=== PATIENT | female | born 1935 | race Caucasian/White ===

== ENCOUNTER 2018-09-08 11:39 | Outpatient (CLI) | payer MEDICARE, OTHER ==
--- NOTE | 2018-09-08 13:29 | RAD ---
CHEST PA AND LATERAL: 09/08/18 HISTORY: 83-year-old female with history of J40, left sided chest pain. and shortness of breath for two weeks. There is prominent S-shaped scoliosis of the thoracolumbar spine, convexed to the right side at the t horacic level and convexed to the left side at the lumbothoracic level. There is a large left effusio n with some parenchymal changes in the left lower lobe in part related to some subsegmental or partia l atelectasis. Heart size is difficult to assess but appears to be at least upper range of normal. M ild increased linear and interstitial markings in the right chest without confluent pneumonia, overt edema or pleural effusion. Very minimal right sided pleural thickening. No old studies. IMPRESSION: Evidence for moderate left pleural effusion with some associated left lower lobe parenchymal change. Heart size appears to be within normal limits or borderline in enlarged. No acute process in the righ t chest. Atherosclerosis of the aorta with ectasia. S-shaped thoracolumbar spine scoliosis. Code T POS: [facility]
== END 2018-09-08 11:40 | disposition home or self-care (01) ==
LOC: SCSRAD 11:39
PROVIDERS: ATTEND Nurse Practitioner Family
DX: J40 Bronchitis, not specified as acute or chronic (principal); J90 Pleural effusion, not elsewhere classified; I70.0 Atherosclerosis of aorta; I77.819 Aortic ectasia, unspecified site; M41.9 Scoliosis, unspecified
CPT/HCPCS: 71046

== ENCOUNTER 2018-09-11 11:47 | Inpatient (IN) | payer MEDICARE, OTHER ==
[2018-09-11 12:17] LABS: #Lymphocytes 0.5 thou/uL (1.20-3.40); #Monocytes 0.3 thou/uL (0.11-0.59); #Neutrophils 7.4 thou/uL (1.40-6.50); %Eosinophils 0.3 % (0.0-10.0); %Lymphocytes 6.5 % (21.0-51.0); %Monocytes 3.4 % (0.0-10.0); %Neutrophils 89.8 % (42.0-75.0); Hemoglobin 14.1 g/dL (12.0-16.0); Mean Corpuscular HGB CONC 33.6 g/dL (32.0-36.0); Mean Corpuscular Hemoglobin 31.4 pg (27.0-31.0); Mean Corpuscular Volume 93.3 fL (78.0-98.0); Mean Platelet Volume 7.4 fL (7.4-10.4); Platelet Count 217 thou/uL (130-400); RBC Distribution Width 12.3 % (11.5-14.5); Red Blood Cell (RBC) Count 4.51 mill/uL (4.20-5.40); White Blood Cell (WBC) Count 8.2 thou/uL (4.8-10.8)
[2018-09-11] MEDS ORDERED: Ondansetron PF 4 MG/2 ML Vial ONE (12:34)
[2018-09-11] MEDS ORDERED: Morphine 4 MG/ML VIAL ONE ×2 (12:36→15:05)
[2018-09-11 12:42] LABS: ALT (SGPT) 8 U/L (8-55); AST (SGOT) 8 U/L (5-34); Albumin 3.3 g/dL (3.4-4.8); Alkaline Phosphatase 52 U/L (40-150); Anion Gap 11 mmol/L (10-20); BUN (Urea Nitrogen) 30 mg/dL (9.8-20.1); Bilirubin, Total 0.5 mg/dL (0.2-1.2); Calc. Creatinine Clearance 0 mL/min (70-130); Calcium 9.4 mg/dL (7.8-10.44); Carbon Dioxide 27 mmol/L (23-31); Chloride 105 mmol/L (98-107); Estimated GFR-MDRD 44; Globulin 2.9 g/dL (2.4-3.5); Glucose 255 mg/dL (83-110); Lipase 18 U/L (8-78); Potassium 4.3 mmol/L (3.5-5.1); Protein, Total 6.2 g/dL (6.0-8.3); Sodium 139 mmol/L (136-145)
[2018-09-11] MEDS ORDERED: Sodium Chloride 0.9% 0 ML ONE (13:18)
[2018-09-11] MEDS ORDERED: Piperacillin/Tazobactam 4.5 GM VIAL ONE (13:18)
--- NOTE | 2018-09-11 13:19 | RAD ---
CHEST ONE VIEW: HISTORY: Dyspnea. COMPARISON: Chest radiograph from 09/08/2018. FINDINGS: The large left layering pleural effusion has slightly increased in size. A left basilar air space op acity is present. Scoliosis is similar. Mild pulmonary vascular congestion. IMPRESSION: 1. Increased size of layering left pleural effusion, which is now large, with apical capping. Thora centesis may be beneficial in this patient if clinically warranted. 2. Mild pulmonary vascular congestion and early edema. POS: [facility]
--- NOTE | 2018-09-11 13:27 | CT ---
CT ABDOMEN AND PELVIS WITHOUT CONTRAST: Date: 09-11-18 Provided Clinical History: Abdominal pain. FINDINGS: Comparison 04-02-16, [facility]. There is a large volume left pleural effusion demonstrating Hounsfield units greater seen than usuall y seen for simple fluid. This could reflect a hemorrhagic component to fluid or a proteinaceous compo nent to the fluid. There is free intraperitoneal air present. There is focal inflammatory fat stranding seen about the s igmoid colon with an adjacent 4.0 cm gas and fluid collection within the anterior left midabdomen. There is no evidence for bowel obstruction. Vascular calcifications are seen. Changes of prior right nephrectomy are seen. Stable left renal hypodensities. Spleen, adrenal glands, pancreas, and liver ap pear unremarkable. The osseous structures demonstrate no concerning lytic or blastic lesions. IMPRESSION: 1. Findings compatible with perforated sigmoid diverticulitis with free intraperitoneal air and parac olonic gas and fluid collection. 2. Large volume left pleural effusion demonstrating Hounsfield units atypical for simple fluid and po ssibly reflecting a hemorrhagic or proteinaceous component. Findings discussed with Dr. Hanson in the Emergency Department 1:09 p.m. 09-11-18. POS: [facility]
[2018-09-11 13:30] LABS: PTT 25.5 SEC (22.9-36.1); Prothrombin Time 13.7 SEC (12.0-14.7)
[2018-09-11] MEDS ORDERED: metroNIDAZOLE 500 MG in Premix Bag 1 BAG IVPB SCH ×2 (13:30→22:00)
[2018-09-11 16:22] LABS: BF Color Yellow; Body Fluid Source THORACENTESIS FLD; Clarity Cloudy/Turbid (Clear); RBC Count-Automated 15000 /cumm; Tube # EDTA; WBC/NonHematic-Auto 5570 /cumm
[2018-09-11 16:31] LABS: Fluid, Triglycerides 18 mg/dL (Not Available); Pleural Fluid, Amylase Less than 30 U/L (Not Available); Pleural Fluid, Glucose 138 mg/dL; Pleural Fluid, LDH 2085 U/L (Not Available); Pleural Fluid, Protein 3.8 g/dL
[2018-09-11] MEDS ORDERED: Morphine 4 MG/ML VIAL SLOW IVP PRN (16:43)
[2018-09-11] MEDS ORDERED: D5 1/2 NS w/20 mEq KCL 1,000 ML IV SCH (16:45)
[2018-09-11] MEDS ORDERED: Ondansetron ODT 4 MG TAB SL PRN (16:45)
[2018-09-11] MEDS ORDERED: Ondansetron PF 4 MG/2 ML Vial IVP PRN (16:45)
[2018-09-11 17:16] LABS: BF Segmented Neutrophils 5 %; Cell Count Non Hematic 50 %; Lymphocytes 45 %
[2018-09-11] MEDS ORDERED: Dextrose 5% in Water 1,000 ML IV PRN (17:22)
[2018-09-11] MEDS ORDERED: hydrALAZINE 20 MG/ML VIAL SLOW IVP PRN (17:22)
[2018-09-11] MEDS ORDERED: Dextrose 50% Abboject 50 ML SYRINGE SLOW IVP PRN (17:22)
--- NOTE | 2018-09-11 17:29 | RAD ---
RADIOGRAPH CHEST 1 VIEW: Date: 09/11/18 Time: 3:42 p.m. HISTORY: 83-year-old female status post thoracentesis for left pleural effusion. COMPARISON: 09/11/18 at 1:03 p.m. FINDINGS: The previously very large left pleural effusion has decreased in volume, resulting in improved aerati on of the left upper lobe. It is still large, causing opacification of the lower half of the left macho g. The right lung is relatively clear. No pneumothorax is identified. Tortuosity and ectasia, of the thoracic aorta. No pulmonary edema. IMPRESSION: 1. Status left thoracocentesis, with interval decrease in volume of the large left pleural effus ion. 2. No pneumothorax. DIANA [] POS: [facility]
[2018-09-11] MEDS: Lactated Ringer's 1,000 ML IV SCH (17:56)
[2018-09-11] MEDS: Piperacillin/Tazobactam 3.375 GM in Sodium Chloride 0.9% 100 ML IVPB SCH (18:19)
--- NOTE | 2018-09-11 18:19 | HP ---
HISTORY OF PRESENT ILLNESS: Leigha Silva is an 83-year-old female, who lives in [place], [place], but close to her family. She lives independently. She walks with a cane, occasionally uses a walker. She has experienced left lower quadrant pain acutely onset yesterday. She has not had any vomiting. She was admitted, seen in the emergency room and evaluated. Her white count is 8, hemoglobin is 14. She has had a chest x-ray noting a large pleural effusion left and abdominopelvic CAT scan noting changes consistent with diverticulitis. There is a large volume pleural effusion on the left noted on collection of fluid and gas seen anterior to the sigmoid. This is amenable to percutaneous drainage and we will address that. I will ask Radiology to drain this. ALLERGIES: NONE. SOCIAL HISTORY: Tobacco, none since 1974. Alcohol, none. HOME MEDICATIONS: Not obtained. PAST SURGICAL HISTORY: Bilateral shoulder surgery, appendectomy, open cholecystectomy, transvaginal hysterectomy without oophorectomy, right renal cell carcinoma, right nephrectomy, right breast biopsy. PAST MEDICAL HISTORY: Diabetes mellitus type 2, hypertension, history of congestive heart failure. She is followed by Dr. Cipriano Zavala, who last saw her 6 to 8 weeks ago. I have talked to Dr. Cipriano Zavala and the patient has had a recent cardiac evaluation, which is unremarkable for any significant coronary artery disease. Recent echocardiogram reveals normal LV function. REVIEW OF SYSTEMS: Ten-point noncontributory. PHYSICAL EXAMINATION: VITAL SIGNS: Blood pressure 162/114, pulse 56, respirations 28, temperature 97.6 degrees. HEAD, EARS, EYES, NOSE, AND THROAT: Unremarkable. LUNGS: Clear to auscultation. Diminished breath sounds left. CARDIAC: Regular rhythm without murmur or gallop. ABDOMEN: Soft. Tenderness in the left lower quadrant with guarding. The remainder of the abdomen is soft. EXTREMITIES: Unremarkable. LABORATORY DATA: White count 8, hemoglobin 14. BUN 30, creatinine 1.16, sodium 139, potassium 4.3. ASSESSMENT AND PLAN: 1. Diverticulitis with diverticular abscess. We will to drain this. She understands the risks and benefits and consents. We will treated her with intravenous antibiotics, Zosyn high dose. 2. Left pleural effusion. Consult Dr. Burgess, who has already tapped her with a dirty fluid. Microbiology for this is pending. Cultures are pending. We will await further assessment. This is probably chronic. 3. Diabetes mellitus type 2. 4. Hypertension. 5. Congestive heart failure, recently followed by Dr. Cipriano Zavala. Recently seen with a normal echocardiogram and no significant cardiac disease on recent cardiac exam. She probably has some degree of diastolic dysfunction. 6. Some debilitation. Ambulates with a walker occasionally and uses a cane other times. Job ID: [id number]
[2018-09-11] MEDS: Acetaminophen 1,000 MG in Premix Bag 1 BAG IVPB SCH (20:55)
[2018-09-11] MEDS: Enoxaparin Sodium 30 MG/0.3 ML SYRINGE SC SCH (21:51)
[2018-09-11] MEDS: Morphine 4 MG/ML VIAL SLOW IVP PRN (21:52)
--- NOTE | 2018-09-11 23:50 | CON ---
DATE OF CONSULTATION: HISTORY OF PRESENT ILLNESS: She is an 83-year-old morbidly obese female with severe kyphoscoliosis, who presented to the ER with acute abdomen. She was seen by Dr. Henry, who said she had a perforated sigmoid diverticulitis with free intraperitoneal air, gas and fluid collection. Additionally, she had a large pleural effusion. I spoke with Dr. Henry, the surgeon, who is, for the time, planning conservative treatment. The patient is having some difficulty breathing, but denies any fevers, chills, sweats, or hemoptysis. She has a cough. She is due to come to [facility] to see Dr. Tolliver for thoracentesis and eventually pleural effusion. Because she got sick, she presented to the ER with ongoing evaluation. PAST MEDICAL HISTORY: Pertinent for coronary artery disease. She has a recent cardiac workup, which was unremarkable, history of diabetes, hypertension, arthritis, advanced age. PAST SURGICAL HISTORY: None recently. MEDICATIONS: Unknown. TOBACCO: None. ALCOHOL: None. SOCIAL HISTORY: Unremarkable. FAMILY HISTORY: Unremarkable. PHYSICAL EXAMINATION: VITAL SIGNS: Saturations are 95% on room air, pulse 110, blood pressure 130/80, respiratory rate 18. CHEST: Decreased breath sounds in the entire left lung. Right looks unremarkable. CARDIAC: Normal S1 and S2. No gallops. ABDOMEN: Soft without any masses. LABORATORY DATA: Chest x-rays shows a large left pleural effusion. White count 8,000, H and H 14 and 42, platelet count 217. Lytes are normal. Creatinine 1.69 and BNP was 255. IMPRESSION: 1. Large left pleural effusion, etiology unclear. 2. Diabetes. 3. Hypertension. 4. Sigmoid diverticulitis. PLAN: She was started on broad-spectrum antibiotics, Zosyn and Flagyl. A thoracentesis will be done. Further recommendation as above. Job ID: [id number]
[2018-09-12] MEDS: Acetaminophen 1,000 MG in Premix Bag 1 BAG IVPB SCH ×4 (00:39→17:48)
[2018-09-12] MEDS: Piperacillin/Tazobactam 3.375 GM in Sodium Chloride 0.9% 100 ML IVPB SCH ×5 (00:39→23:57)
[2018-09-12] MEDS ORDERED: cloNIDine 0.1 MG TAB PO PRN (00:52)
[2018-09-12] MEDS: Lactated Ringer's 1,000 ML IV SCH ×2 (04:08→21:24)
[2018-09-12] MEDS: Morphine 4 MG/ML VIAL SLOW IVP PRN ×2 (04:08→11:14)
--- NOTE | 2018-09-12 04:51 | CON ---
DATE OF CONSULTATION: 09/11/2018 REASON FOR CONSULTATION: Medical management of diabetes and diastolic heart failure. HISTORY OF PRESENT ILLNESS: This patient is an 83-year-old female who has a history of diastolic congestive heart failure, who was recently diagnosed with some bronchitis and started on azithromycin and prednisone. The patient had some followup chest x-ray, which revealed right-sided pleural effusion. The patient had an appointment with Dr. Tolliver for today in order to address the pleural effusion. However, the patient awoke and was experiencing increasing abdominal discomfort as well as some nausea, and then she therefore presented to the emergency department. There, CT scan of the abdomen and pelvis showed evidence of perforated sigmoid diverticulitis and large volume left pleural effusion. The patient is on antibiotics for the diverticulitis. Dr. Burgess has already seen the patient from the Pulmonary Service and performed thoracentesis of a large volume of pleural fluid, that fluid was cloudy and turbid with a pH of 7.5, white count 5570, red count 15,000, was predominantly lymphocytes, triglycerides are 18, protein 3.8, LDH 285, glucose 138, and amylase 130. The patient is doing well post procedure. REVIEW OF SYSTEMS: The patient has a tendency toward constipation, but she reports that it has been basically lifelong. She also has some generalized arthritic-type pain, which she believes is due purely to osteoarthritis. She also had a recent cough, which now appears to be secondary to the development of pleural effusion. Otherwise, all other systems were reviewed and all pertinent positives and negatives are mentioned here in the history of present illness. PAST MEDICAL HISTORY: Notable for history of renal cancer with nephrectomy 19 years ago with stable renal function since that time. She has diabetes mellitus, diastolic heart failure with apparently preserved ejection fraction, diabetes mellitus with relatively good control of her blood sugars. PAST SURGICAL HISTORY: Appendectomy, cholecystectomy, hysterectomy, right nephrectomy, right breast biopsy, and bilateral shoulder surgery. FAMILY HISTORY: Reviewed and noncontributory. SOCIAL HISTORY: The patient is a nonsmoker, nondrinker, and nondrug user. She is full code and her daughter is her surrogate decision maker. ALLERGIES: NONE. CURRENT MEDICATIONS: 1. Medrol Dosepak. 2. Calcium with vitamin D. 3. Potassium 10 mEq daily. 4. Cozaar 100 mg daily. 5. Amaryl 1 mg p.o. q.a.m. 6. Lasix 40 mg b.i.d. 7. Lipitor 10 mg daily. 8. Clonidine 0.1 mg p.o. t.i.d. p.r.n. 9. Hydralazine 50 mg p.o. b.i.d. 10. Coreg 25 mg p.o. daily. PHYSICAL EXAMINATION: VITAL SIGNS: Temperature 97.7, pulse 68, respirations 20, O2 saturation 96% on 2 L nasal cannula, BP 111/67. GENERAL APPEARANCE: Age-appropriate female, she is in no distress. She is awake, alert, oriented, pleasant, and cooperative. Daughter is in the room with her as well. HEENT: PERRL. No OP lesions. Slightly dry oral mucosa. NECK: Supple and symmetric without lymphadenopathy or JVD. HEART: Regular rate and rhythm without murmurs, gallops, or rubs. LUNGS: Clear to auscultation bilaterally with no wheezes or rales. ABDOMEN: Soft, nondistended. It is tender to palpation diffusely, slightly more so in the periumbilical and left lower quadrant areas. No guarding. EXTREMITIES: Slightly cool to touch, but she states they feel quite comfortable to her. She has good pulses. NEUROLOGIC: The patient is moving all extremities spontaneously with no evidence of focal deficits. PSYCH: The patient is appropriate with normal affect and behavior. LABORATORY DATA: White count 8.2, hemoglobin 14.1, platelets 217. INR 1.0, PTT 25.5. Sodium 139, potassium 4.3, chloride 105, CO2 of 27, BUN 30, creatinine is 1.16. Glucose is 225. AST 8, ALT 8, alkaline phosphatase 52. Troponin less than 0.01. BNP 255.9. Albumin 3.3. IMPRESSION AND PLAN: 1. Diverticulitis. Admitted to Surgery. Surgery is following, appears to be pursuing conservative management without aggressive surgical intervention that can be avoided at this time. She is on Zosyn. 2. Large pleural effusion, status post thoracentesis by Pulmonology. Does not appear to be infected fluid at this point, most likely represents decompensation of some diastolic dysfunction. Pulmonology following. 3. History of diastolic dysfunction. The patient is on daily diuretics. Clinically, she looks a little bit dry and has intraabdominal process going on, which will require we hold the diuretics for time. 4. Diabetes mellitus. The patient is already on sliding scale insulin with low-dose Humalog. Agree with that plan. Continue to monitor sugars and use sliding scale as indicated. Hypoglycemia protocol is in place. 5. Hypertension. The patient is on beta taty to assist with hypertension and diastolic dysfunction, as well as hydralazine. Would encourage the continued use of Coreg orally if that is okay with Surgery. We will defer that until first thing in the morning, but certainly it would benefit the patient to remain on her beta blockers if at all possible. She has p.r.n. hydralazine ordered, which is appropriate to continue manage blood sugars or blood pressure should it become problematic. Job ID: [id number]
[2018-09-12 07:13] LABS: Band 41 % (5-11); Hemoglobin 12.6 g/dL (12.0-16.0); Lymphocytes 9 % (21-51); MDiff Complete? YES; Mean Corpuscular HGB CONC 31.7 g/dL (32.0-36.0); Mean Corpuscular Hemoglobin 30.1 pg (27.0-31.0); Mean Platelet Volume 7.8 fL (7.4-10.4); Metamyelocyte 3 % (0-0); Neutrophil 47 % (42-75); Platelet Count 146 thou/uL (130-400); RBC Distribution Width 12.5 % (11.5-14.5); Reflex for Review?? YES; White Blood Cell (WBC) Count 9.1 thou/uL (4.8-10.8)
[2018-09-12 07:39] LABS: ALT (SGPT) 21 U/L (8-55); AST (SGOT) 21 U/L (5-34); Albumin 2.6 g/dL (3.4-4.8); Alkaline Phosphatase 43 U/L (40-150); Anion Gap 9 mmol/L (10-20); BUN (Urea Nitrogen) 28 mg/dL (9.8-20.1); Bilirubin, Total 0.7 mg/dL (0.2-1.2); Calc. Creatinine Clearance 42 mL/min (70-130); Calcium 8.5 mg/dL (7.8-10.44); Carbon Dioxide 28 mmol/L (23-31); Chloride 109 mmol/L (98-107); Estimated GFR-MDRD 43; Globulin 2.3 g/dL (2.4-3.5); Glucose 134 mg/dL (83-110); Protein, Total 4.9 g/dL (6.0-8.3); Sodium 142 mmol/L (136-145)
[2018-09-12] MEDS: Carvedilol 25 MG TAB PO SCH ×2 (07:45→14:44)
[2018-09-12] MEDS: Pantoprazole 40 MG VIAL IVP SCH (07:45)
[2018-09-12] MEDS: Losartan 25 MG TAB PO SCH ×2 (07:46→14:44)
--- NOTE | 2018-09-12 08:04 | PDOC.PN ---
- Subjective Encounter Start Date: 09/12/18 Encounter Start Time: 08:03 Subjective: feels Ok ,still w abd pain on and off.wants to drink water -: care discussed w son at bedside -: reports of reduced urine output ON.discussed w RN - Objective MAR Reviewed: Yes Vital Signs & Weight: Vital Signs (12 hours) Temp Pulse Resp BP Pulse Ox 09/12/18 04:24 97.8 F 72 20 131/63 95 09/12/18 00:02 97.8 F 75 20 112/64 96 09/11/18 21:16 97.7 F 68 20 111/67 96 Weight Weight 170 lb Result Diagrams: 09/12/18 05:37 09/12/18 05:37 Additional Labs: Accuchecks 09/12/18 09/11/18 05:54 23:53 POC Glucose 127 H 160 H Microbiology 09/11/18 Unknown Pleural fluid Body Fluid Culture - Preliminary Laboratory Tests 08/31/18 09/11/18 09/11/18 10:16 12:05 12:05 Creatinine 1.28 H 1.16 H B-Natriuretic Peptide 255.9 H Fluid pH Pleural Total Protein Pleural LDH Pleural Glucose Pleural Amylase 09/11/18 09/11/18 09/12/18 Unknown Unknown 05:37 Creatinine 1.19 H B-Natriuretic Peptide Fluid pH 7.5 Pleural Total Protein 3.8 Pleural LDH 2085 Pleural Glucose 138 Pleural Amylase Less than 30 Phys Exam - Physical Examination Constitutional: NAD HEENT: PERRLA, moist MMs, sclera anicteric, oral pharynx no lesions Neck: no nodes, no JVD, supple, full ROM Respiratory: no wheezing, no rales, no rhonchi, clear to auscultation bilateral Cardiovascular: RRR, no significant murmur, no rub Gastrointestinal: soft, non-tender, no distention, positive bowel sounds Musculoskeletal: no edema, pulses present Neurological: non-focal, normal sensation, moves all 4 limbs Psychiatric: normal affect, A&O x 3 Skin: no rash Dx/Plan (1) Sigmoid diverticulitis Code(s): K57.32 - DVTRCLI OF LG INT W/O PERFORATION OR ABSCESS W/O BLEEDING Status: Acute Comment: with perforation. (2) Pleural effusion Code(s): J90 - PLEURAL EFFUSION, NOT ELSEWHERE CLASSIFIED Status: Acute Comment: S/P thoracentesis. exudative in nature. Pathology and microbiology pending (3) DM2 (diabetes mellitus, type 2) Status: Chronic (4) HTN (hypertension) Code(s): I10 - ESSENTIAL (PRIMARY) HYPERTENSION Status: Chronic (5) CKD (chronic kidney disease) stage 3, GFR 30-59 ml/min Code(s): N18.3 - CHRONIC KIDNEY DISEASE, STAGE 3 (MODERATE) Status: Chronic Comment: s/p R nephrectomy 15 yrs ago - Plan DVT proph w/SCDs Check PVR.if >300ml,lowe.cont IVF.NPO -: ISS accuchecks -: on zosyn.may need surgical exploration for possible abscees -: suspect Pl effusion d/t intrabdomial process.H/O Diastolic CHF -: recommend restarting lasix but pt also getting IV contrast w CT today. * .Recheck renal Fx. baseline unknown * am labs * IM team will follow * home meds as below.HD stable Review of Systems - Review of Systems Constitutional: weakness, malaise. negative: fever, chills, sweats, other ENT: negative: Ear Pain, Ear Discharge, Nose Pain, Nose Discharge, Nose Congestion, Mouth Pain, Mouth Swelling, Throat Pain, Throat Swelling, Other Respiratory: negative: Cough, Dry, Shortness of Breath, Hemoptysis, SOB with Excertion, Pleuritic Pain, Sputum, Wheezing Cardiovascular: negative: chest pain, palpitations, orthopnea, paroxysmal nocturnal dyspnea, edema, light headedness, other Gastrointestinal: Abdominal Pain. negative: Nausea, Vomiting, Diarrhea, Constipation, Melena, Hematochezia, Other Genitourinary: negative: Dysuria, Frequency, Incontinence, Hematuria, Retention , Other Musculoskeletal: negative: Neck Pain, Shoulder Pain, Arm Pain, Back Pain, Hand Pain, Leg Pain, Foot Pain, Other Neurological: negative: Weakness, Numbness, Incoordination, Change in Speech, Confusion, Seizures, Other - Medications/Allergies Allergies/Adverse Reactions: Allergies Allergy/AdvReac Type Severity Reaction Status Date / Time No Known Allergies Allergy Unverified 09/11/18 13:24 Medications: Current Medications Carvedilol (Coreg) 25 mg PO QAM-WM ROSELINE Clonidine (Catapres) 0.1 mg PO TIDPRN PRN PRN Reason: Hypertension Dextrose/Water (Dextrose 50%) 25 gm SLOW IVP PRN PRN PRN Reason: Hypoglycemia Enoxaparin Sodium (Lovenox) 30 mg SC 2100 [facility] Last Admin: 09/11/18 21:51 Dose: 30 mg Glucagon (Glucagon) 1 mg IM PRN PRN PRN Reason: Hypoglycemia Hydralazine HCl (Apresoline) 10 mg SLOW IVP Q4H PRN PRN Reason: SBP > 170 or DBP > 100 Acetaminophen 1,000 mg/ Device 100 mls @ 400 mls/hr IVPB Q6HR [facility] Stop: 09/12/18 18:01 Last Admin: 09/12/18 06:28 Dose: 100 mls Dextrose/Water (D5w) 1,000 mls @ 0 mls/hr IV .Q0M PRN PRN Reason: Hypoglycemia Lactated Ringer's (Lactated Ringer's) 1,000 mls @ 100 mls/hr IV .Q10H [facility] Last Admin: 09/12/18 04:08 Dose: 1,000 mls Piperacillin Sod/Tazobactam (Sod 3.375 gm/ Sodium Chloride) 100 mls @ 200 mls/ hr IVPB Q6HR [facility] Last Admin: 09/12/18 06:27 Dose: 100 mls Insulin Human Lispro (Humalog) 0 units SC .MODERATE SLIDING SC PRN PRN Reason: Moderate Correctional Scale Losartan Potassium (Cozaar) 100 mg PO DAILY [facility] Morphine Sulfate (Morphine) 2 mg SLOW IVP Q2H PRN PRN Reason: Mild Pain (1-3) Last Admin: 09/12/18 04:08 Dose: 2 mg Morphine Sulfate (Morphine) 4 mg SLOW IVP Q2H PRN PRN Reason: Moderate Pain (4-6) Pantoprazole Sodium (Protonix) 40 mg IVP DAILY [facility] Last Admin: 09/12/18 07:45 Dose: 40 mg Sodium Chloride (Flush - Normal Saline) 10 ml IVF PRN PRN PRN Reason: Saline Flush
--- NOTE | 2018-09-12 13:41 | PRG ---
DATE OF SERVICE: 09/12/2018 SUBJECTIVE: This morning, she is better. She is less short of breath. Still having abdominal discomfort. OBJECTIVE: VITAL SIGNS: Sats are 96% on 2 L, respiratory rate 20, temperature 97, blood pressure 97/64. CHEST: Decreased breath sounds. Extensive bilateral crackles. CARDIAC: Normal S1, S2. No gallops or masses. LABORATORY DATA: White count 9000. Lytes are normal. LABORATORY DATA: Creatinine 1.9, BUN 28. BNP is 255. Pleural effusion showed LDH of 2000, protein was 3.8, it is an exudate, many lymphocytes. ASSESSMENT AND PLAN: 1. Large pleural effusion, lymphocytosis, exudate. I doubt it is parapneumonic. 2. Perforated colon. Advanced age. I am concerned for the pleural effusion. Await cytology. Meantime, continue antibiotics, supportive care. Job ID: [id number]
[2018-09-12] MEDS ORDERED: Lactated Ringer's 1,000 ML IV SCH (14:00)
[2018-09-12] MEDS ORDERED: Metoclopramide HCl 10 MG/2 ML VIAL IVP SCH (14:15)
[2018-09-12] MEDS: Sodium Chloride 0.45% 1,000 ML IV SCH ×2 (14:49→21:06)
--- NOTE | 2018-09-12 14:57 | PRG ---
DATE OF SERVICE: SUBJECTIVE: Ms. Leigha Silva has an emesis bag in hand. Dr. Burgess has ordered a CAT scan of her chest with IV contrast tomorrow. OBJECTIVE: VITAL SIGNS: Temperature 97.7 degrees, pulse 70, respiratory rate 20, and blood pressure 97/64. LUNGS: Clear to auscultation. Diminished breath sounds left. CARDIAC: Regular rate and rhythm. ABDOMEN: Slightly protuberant. She has guarding and rebound in the left lower quadrant, where she has sigmoid diverticular abscess. She has more tenderness than yesterday in her upper abdomen and to the right. LABORATORY DATA: White count 9 and hemoglobin 12. Sodium 142, potassium 4.0, BUN 28, and creatinine 1.19. GFR 43. Accu-Cheks 130-127. Coagulation studies normal. Her gram stain from pleural effusion evacuation is negative. ASSESSMENT AND PLAN: 1. Left pleural effusion, status post thoracentesis. There is concern of a malignancy in her left chest. A CT scan of her chest has been ordered for tomorrow, but we will change that today. We will use the IV contrast. We will hydrate her with fluid bolus and increase her IV fluid rate. Considering her chronic kidney disease from her right nephrectomy in past, my concern is that she had a right nephrectomy 15 years ago for renal cell carcinoma. 2. Diverticulitis. Her laboratories are improved. CBC reveals a normal white count, although she has 41% bands. She seems to be more tender today. Her blood pressure is slightly low. She may need surgical intervention. We will plan to obtain a CAT scan of her chest, abdomen, and pelvis, IV and p.o. contrast to both evaluate her left thorax pleural effusion, lung mass, and her abdominal cavity for diverticulitis. She may need operative intervention today. 3. Chronic kidney disease from right nephrectomy for renal cell carcinoma 15 years ago. Job ID: [id number]
[2018-09-12] MEDS ORDERED: Iopamidol 370 76% 50 ML VIAL FS ONE (15:38)
[2018-09-12] MEDS ORDERED: ISOVUE-370 76%-LOCM 1 ML ONE (15:38)
--- NOTE | 2018-09-12 19:18 | CT ---
CT OF CHEST AND ABDOMEN AND PELVIS: 09/12/18 HISTORY: Patient is status post a left sided thoracentesis. There is an older history of renal cell carcinoma with right nephrectomy. The patient also has a history of recent perforated diverticulitis. COMPARISON: 09/11/18 CT of the abdomen and pelvis: The patient has undergone a left sided thoracentesis. There is definite reduction in the left side pl eural effusion. There is collapse of the left lower lobe. There is atelectatic change in the right ba se and a small right effusion. There are coronary artery calcifications present. No significant media stinal or hilar adenopathy. No pulmonary nodules identified. There are emphysematous lung changes see n. CT OF ABDOMEN PERFORMED WITH CONTRAST ENHANCEMENT: The liver, and spleen are normal in appearance. The pancreas region is unremarkable. The gallbladder has been removed. The intra and extrahepatic ductal dilatation is similar to the prior exam and is fe lt to be post cholecystectomy in origin. Right and left adrenal glands and left kidney are normal in size. Hypodensities involving the left ki dney appear to represent cysts. The right kidney has been removed. No evidence of any recurrent tumor in the right renal bed. No significant periaortic or mesenteric adenopathy. Once again, extensive di verticular disease of the descending and sigmoid colon is noted with acute diverticulitis changes see n within the sigmoid colon. Along the lateral margin of the junction of the descending and sigmoid co anatoliy is a slightly crescentic shaped fluid density collection measuring 2 cm in diameter and approxima tely 8 cm in length. This is similar to the prior examination. The only difference is the air density seen within this collection is no longer present. There is a slight increased amount of fluid tracki ng into the cul-de-sac region as compared to the prior exam. The free air within the abdomen is stabl e. Nonobstructing right inguinal hernia is incidentally noted. IMPRESSION: 1. Sigmoid diverticulitis. There is a somewhat crescent shaped fluid collection slightly less th an 2 cm in diameter and 8 cm in length along the left lateral margin of the sigmoid colon most compat ible with a small abscess collection. It is similar in size to the previous examination. The only dif ference is the air within this collection is no longer present. there is a slight increased amount of free fluid seen in the cul-de-sac region as compared to the prior examination. The free air seen wit hin the abdomen is stable. 2. Postop right nephrectomy change. 3. Post left sided thoracentesis, still with mild left somewhat elongated appearing left pleural effusion. No pneumothorax. The left lower lobe is atelectatic and there is atelectasis in the right lower lobe with a tiny right effusion. POS: [facility]
[2018-09-12] MEDS ORDERED: Sodium Chloride 0.9% 1,000 ML IV SCH ×2 (20:00)
[2018-09-12] MEDS: Enoxaparin Sodium 30 MG/0.3 ML SYRINGE SC SCH (21:06)
[2018-09-13] MEDS: Dextrose 5 % And 0.9 % NaCl 1,000 ML IV SCH ×4 (00:45→19:15)
[2018-09-13] MEDS: Morphine 4 MG/ML VIAL SLOW IVP PRN ×4 (02:57→20:33)
[2018-09-13] MEDS: Piperacillin/Tazobactam 3.375 GM in Sodium Chloride 0.9% 100 ML IVPB SCH ×4 (05:36→23:43)
[2018-09-13 06:50] LABS: ALT (SGPT) 18 U/L (8-55); AST (SGOT) 17 U/L (5-34); Albumin 2.2 g/dL (3.4-4.8); Alkaline Phosphatase 44 U/L (40-150); Anion Gap 12 mmol/L (10-20); BUN (Urea Nitrogen) 31 mg/dL (9.8-20.1); Bilirubin, Total 0.4 mg/dL (0.2-1.2); Calc. Creatinine Clearance 39 mL/min (70-130); Calcium 7.5 mg/dL (7.8-10.44); Carbon Dioxide 22 mmol/L (23-31); Chloride 110 mmol/L (98-107); Estimated GFR-MDRD 39; Globulin 2.3 g/dL (2.4-3.5); Glucose 147 mg/dL (83-110); Potassium 3.7 mmol/L (3.5-5.1); Protein, Total 4.5 g/dL (6.0-8.3); Sodium 140 mmol/L (136-145)
[2018-09-13] MEDS: Losartan 25 MG TAB PO SCH (07:48)
[2018-09-13] MEDS: Carvedilol 25 MG TAB PO SCH (07:48)
[2018-09-13 09:12] LABS: Band 48 % (5-11); Lymphocytes 2 % (21-51); MDiff Complete? YES; Mean Corpuscular HGB CONC 32.8 g/dL (32.0-36.0); Mean Corpuscular Hemoglobin 31.7 pg (27.0-31.0); Mean Corpuscular Volume 96.5 fL (78.0-98.0); Metamyelocyte 3 % (0-0); Monocytes 1 % (0-10); Neutrophil 46 % (42-75); PLT Morphology Comment Appears Decreased; Platelet Count 115 thou/uL (130-400); RBC Distribution Width 12.6 % (11.5-14.5); Red Blood Cell (RBC) Count 3.77 mill/uL (4.20-5.40); White Blood Cell (WBC) Count 8.9 thou/uL (4.8-10.8)
[2018-09-13] MEDS: Pantoprazole 40 MG VIAL IVP SCH (09:36)
--- NOTE | 2018-09-13 10:28 | PDOC.PN ---
- Subjective Encounter Start Date: 09/13/18 Encounter Start Time: 10:26 Subjective: feels a little bit better.abd pain slightly improved -: care discussed w family at bedside - Objective MAR Reviewed: Yes Vital Signs & Weight: Vital Signs (12 hours) Temp Pulse Resp BP Pulse Ox 09/13/18 08:00 2 L 09/13/18 07:18 97.6 F 70 18 102/57 L 91 L 09/13/18 04:39 97.6 F 69 18 90/54 L 95 09/13/18 02:56 101/66 09/12/18 23:58 98.5 F 70 18 94/53 L 09/12/18 23:00 96 Weight Weight 170 lb I&O: 09/12/18 09/13/18 09/14/18 06:59 06:59 06:59 Intake Total 2500 Balance 2500 Result Diagrams: 09/13/18 05:44 09/13/18 05:44 Additional Labs: Accuchecks 09/13/18 09/13/18 09/12/18 05:43 02:44 23:41 POC Glucose 157 H 117 H 71 09/12/18 09/12/18 16:28 11:08 POC Glucose 81 109 Microbiology 09/11/18 Unknown Pleural fluid Acid Fast Bacilli Smear - Final 09/11/18 Unknown Pleural fluid Body Fluid Culture - Preliminary Laboratory Tests 09/11/18 09/12/18 09/13/18 12:05 05:37 05:44 Creatinine 1.16 H 1.19 H 1.30 H Phys Exam - Physical Examination Constitutional: NAD HEENT: PERRLA, moist MMs, sclera anicteric, oral pharynx no lesions Neck: no nodes, no JVD, supple, full ROM Respiratory: no wheezing, no rales, no rhonchi, clear to auscultation bilateral Cardiovascular: RRR, no significant murmur, no rub Gastrointestinal: soft, no distention, positive bowel sounds tenderness less today Musculoskeletal: no edema, pulses present Neurological: non-focal, normal sensation, moves all 4 limbs Psychiatric: normal affect, A&O x 3 Skin: no rash Dx/Plan (1) Sigmoid diverticulitis Code(s): K57.32 - DVTRCLI OF LG INT W/O PERFORATION OR ABSCESS W/O BLEEDING Status: Acute Comment: with perforation.Conservative Managment .on IV ABx (2) Pleural effusion Code(s): J90 - PLEURAL EFFUSION, NOT ELSEWHERE CLASSIFIED Status: Acute Comment: S/P thoracentesis. exudative in nature. Pathology and microbiology pending (3) DM2 (diabetes mellitus, type 2) Status: Chronic (4) HTN (hypertension) Code(s): I10 - ESSENTIAL (PRIMARY) HYPERTENSION Status: Chronic (5) CKD (chronic kidney disease) stage 3, GFR 30-59 ml/min Code(s): N18.3 - CHRONIC KIDNEY DISEASE, STAGE 3 (MODERATE) Status: Chronic Comment: s/p R nephrectomy 15 yrs ago - Plan plan discussed w/ family, continue antibiotics, PT/OT, respiratory therapy, incentive spirometry, out of bed/ambulate, DVT proph w/SCDs BP lower side.hold coreg and cozaar.cont IVF.changed to D5 ns. -: cont zosyn. -: ISS w accuchecks. -: WBC count stable and WNL.Cr slightly worse-on IVF.Diuretic on hold -: am labs.IM team will follow.encouraged for IS & ambulation * . Review of Systems - Review of Systems Constitutional: weakness, malaise. negative: fever, chills, sweats, other Respiratory: negative: Cough, Dry, Shortness of Breath, Hemoptysis, SOB with Excertion, Pleuritic Pain, Sputum, Wheezing Cardiovascular: negative: chest pain, palpitations, orthopnea, paroxysmal nocturnal dyspnea, edema, light headedness, other Gastrointestinal: Abdominal Pain. negative: Nausea, Vomiting, Diarrhea, Constipation, Melena, Hematochezia, Other Genitourinary: negative: Dysuria, Frequency, Incontinence, Hematuria, Retention , Other Musculoskeletal: negative: Neck Pain, Shoulder Pain, Arm Pain, Back Pain, Hand Pain, Leg Pain, Foot Pain, Other Neurological: negative: Weakness, Numbness, Incoordination, Change in Speech, Confusion, Seizures, Other - Medications/Allergies Allergies/Adverse Reactions: Allergies Allergy/AdvReac Type Severity Reaction Status Date / Time No Known Allergies Allergy Unverified 09/11/18 13:24 Medications: Current Medications Clonidine (Catapres) 0.1 mg PO TIDPRN PRN PRN Reason: Hypertension Dextrose/Water (Dextrose 50%) 25 gm SLOW IVP PRN PRN PRN Reason: Hypoglycemia Enoxaparin Sodium (Lovenox) 30 mg SC 2100 [facility] [place] Last Admin: 09/12/18 21:06 Dose: 30 mg Glucagon (Glucagon) 1 mg IM PRN PRN PRN Reason: Hypoglycemia Hydralazine HCl (Apresoline) 10 mg SLOW IVP Q4H PRN PRN Reason: SBP > 170 or DBP > 100 Dextrose/Water (D5w) 1,000 mls @ 0 mls/hr IV .Q0M PRN PRN Reason: Hypoglycemia Piperacillin Sod/Tazobactam (Sod 3.375 gm/ Sodium Chloride) 100 mls @ 200 mls/ hr IVPB Q6HR [facility] Last Admin: 09/13/18 05:36 Dose: 100 mls Dextrose/Sodium Chloride (D5 0.9% Ns) 1,000 mls @ 150 mls/hr IV .Q6H40M [facility] Last Admin: 09/13/18 09:37 Dose: 1,000 mls Insulin Human Lispro (Humalog) 0 units SC .MODERATE SLIDING SC PRN PRN Reason: Moderate Correctional Scale Morphine Sulfate (Morphine) 2 mg SLOW IVP Q2H PRN PRN Reason: Mild Pain (1-3) Last Admin: 09/13/18 02:57 Dose: 2 mg Morphine Sulfate (Morphine) 4 mg SLOW IVP Q2H PRN PRN Reason: Moderate Pain (4-6) Last Admin: 09/12/18 11:14 Dose: 4 mg Pantoprazole Sodium (Protonix) 40 mg IVP DAILY [facility] [place] Last Admin: 09/13/18 09:36 Dose: 40 mg Sodium Chloride (Flush - Normal Saline) 10 ml IVF PRN PRN PRN Reason: Saline Flush
--- NOTE | 2018-09-13 11:59 | PRG ---
DATE OF SERVICE: 09/13/2018 SUBJECTIVE: This morning, she is doing better. She is still having some vague abdominal pain. Less short of breath. OBJECTIVE: VITAL SIGNS: Saturation 91% on 2 L, blood pressure 102/57, temperature 97, pulse 70, respiratory rate 18. CHEST: Decreased breath sounds in the left lung. Minimal crackles. CARDIAC: Normal S1 and S2. No gallops. ABDOMEN: No mass. LABORATORY DATA: Creatinine 1.30. White count 8000, H and H 12 and 36, platelet count is 115. IMPRESSION: 1. Thrombocytopenia, new. 2. Loculated perforated sigmoid diverticulitis with left pleural effusion exudate. Awaiting pathology. PLAN: Continue antibiotics as per surgery. Pulmonary teran, at this stage await results of the pleural effusion. Still concerned that there is a significant volume loss in the left lung. We will follow. Job ID: [id number]
--- NOTE | 2018-09-13 12:28 | PRG ---
DATE OF SERVICE: 09/13/2018 SUBJECTIVE: Ms. Silva is doing well today. She states that she feels better. She is having less pain. OBJECTIVE: VITAL SIGNS: Temperature 97.6 degrees, pulse 70, respiratory rate 18, and blood pressure 102/57 (blood pressure normally 120 to 130 systolic). LUNGS: Clear to auscultation. CARDIAC: Regular rate and rhythm without murmur or gallop. ABDOMEN: Soft. Mild tenderness diffusely, but less so than yesterday. Guarding, rebound, left lower quadrant. EXTREMITIES: Unremarkable. LABORATORY DATA: White count 8.9 with 48% neutrophil bands, 46% neutrophils, hemoglobin 12. Sodium 140, potassium is 3.7, BUN 31, creatinine 1.30. Accu-Cheks 117 to 166. ASSESSMENT AND PLAN: 1. Severe diverticulitis. CAT scan yesterday revealed a fluid collection in the left lower quadrant, perhaps slightly larger than on admission, but there was no free extravasation. I am concerned about the patient's left shift, although she has normal white count. She is afebrile. Vital signs otherwise normal except for slightly lower blood pressure. She, however, reports less pain and her tenderness is less. We will continue intravenous antibiotics. She is at risk for having an operation, but this would be a significant event for her. Hopefully, we can continue to treat this nonoperatively and I have communicated these concerns to the family. If she certainly has any deterioration in laparotomy, colon resection and colostomy would be indicated. 2. Effusion, left. She has been followed by Dr. Burgess. CAT scan of the chest did not reveal any lung masses. The etiology of effusion is unknown. The patient does have a remote history of renal cell carcinoma. 3. Obesity. 4. Diabetes mellitus, followed by medical service. 5. History of chronic kidney disease, status post right nephrectomy for renal cell carcinoma 15 years ago. Await cytology on the effusion. Microbiology so far reveals negative Gram stain, negative acid-fast bacilli and cultures today are negative at 36 hours. 6. Deconditioning. Physical Therapy is working with her. I have recommended she be out of bed 3 to 4 times a day and ambulate with Therapy and nurses. 7. Dr. Gonzalez is covering and , tomorrow and the next day. I will see her on Wednesday. I have communicated this to the family. Job ID: [id number]
--- NOTE | 2018-09-13 16:42 | HP ---
ADDENDUM: Add to her past medical history, chronic kidney disease. Add to her assessment/plan, chronic kidney disease I have discussed with Radiology regarding the fluid collection, it is a very __small volume. At this point, we will not ask for CT-guided drainage. We would instead treat it with antibiotics and repeat her CAT scan in the next few days pending her clinical course. Job ID: [id number] [facility] NETWORKJordana
--- NOTE | 2018-09-13 17:18 | OP ---
DATE OF PROCEDURE: 09/11/2018 PROCEDURE PERFORMED: Thoracentesis. INDICATION: Massive pleural effusion. DESCRIPTION OF PROCEDURE: After informed consent from the patient, she was sitting upright in bed. The left posterior thorax was cleaned with chlorhexidine and 1% Xylocaine was infiltrated in the 9th intercostal space in the midscapular line. Pleural cavity was entered in. After infiltrating the pleura, about 20 mL of turbid yellow fluid was removed. Thereafter, using 8-Brazilian catheter, additionally 1300 mL of turbid dark yellow fluid was removed without any difficulty. Fluid will be send for pleural studies including cytology and culture. The patient tolerated the procedure well. We will follow. This is a consultation note, 50 minutes in direct patient care, followed by the thoracentesis. Job ID: [id number]
[2018-09-13] MEDS: Sodium Chloride 0.45% 1,000 ML IV SCH ×2 (17:45→23:50)
[2018-09-13] MEDS: Enoxaparin Sodium 30 MG/0.3 ML SYRINGE SC SCH (20:33)
[2018-09-14] MEDS: Morphine 4 MG/ML VIAL SLOW IVP PRN ×4 (01:43→18:29)
[2018-09-14] MEDS: Piperacillin/Tazobactam 3.375 GM in Sodium Chloride 0.9% 100 ML IVPB SCH ×3 (06:24→18:27)
[2018-09-14] MEDS: Dextrose 5 % And 0.9 % NaCl 1,000 ML IV SCH (06:24)
[2018-09-14] MEDS: Sodium Chloride 0.45% 1,000 ML IV SCH (06:27)
[2018-09-14 06:49] LABS: AST (SGOT) 14 U/L (5-34); Albumin 2.1 g/dL (3.4-4.8); Anion Gap 12 mmol/L (10-20); Bilirubin, Total 0.4 mg/dL (0.2-1.2); Calc. Creatinine Clearance 48 mL/min (70-130); Calcium 7.1 mg/dL (7.8-10.44); Carbon Dioxide 17 mmol/L (23-31); Chloride 115 mmol/L (98-107); Estimated GFR-MDRD 50; Globulin 2.5 g/dL (2.4-3.5); Glucose 68 mg/dL (83-110); Potassium 3.7 mmol/L (3.5-5.1); Protein, Total 4.6 g/dL (6.0-8.3); Sodium 140 mmol/L (136-145)
[2018-09-14 07:06] LABS: Alkaline Phosphatase 53 U/L (40-150); BUN (Urea Nitrogen) 23 mg/dL (9.8-20.1)
[2018-09-14 07:10] LABS: ALT (SGPT) 11 U/L (8-55)
[2018-09-14 07:38] LABS: Hemoglobin 12.5 g/dL (12.0-16.0); Mean Corpuscular HGB CONC 33.1 g/dL (32.0-36.0); Mean Corpuscular Hemoglobin 31.6 pg (27.0-31.0); Mean Corpuscular Volume 95.5 fL (78.0-98.0); Mean Platelet Volume 8.2 fL (7.4-10.4); Platelet Count 114 thou/uL (130-400); RBC Distribution Width 12.5 % (11.5-14.5); Red Blood Cell (RBC) Count 3.95 mill/uL (4.20-5.40); White Blood Cell (WBC) Count 9.3 thou/uL (4.8-10.8)
[2018-09-14 07:43] LABS: Band 26 % (5-11); Lymphocytes 2 % (21-51); MDiff Complete? YES; Metamyelocyte 2 % (0-0); Monocytes 1 % (0-10); Myelocyte 1 % (0-0); Neutrophil 65 % (42-75); PLT Morphology Comment Appears Decreased; Polychromasia SLIGHT = 2-3 cells (100X) (0-2/hpf); Reactive Lymphocytes 3 % (0-10); Toxic Granulation SLIGHT
[2018-09-14] MEDS: Pantoprazole 40 MG VIAL IVP SCH (07:58)
[2018-09-14] MEDS ORDERED: Dextrose 5 % And 0.9 % NaCl 1,000 ML IV SCH (08:18)
[2018-09-14] MEDS ORDERED: Furosemide 20 MG/2 ML VIAL SLOW IVP SCH (10:30)
--- NOTE | 2018-09-14 11:14 | PDOC.PN ---
- Subjective Encounter Start Date: 09/14/18 Encounter Start Time: 11:12 Subjective: feels Ok but no BM since admission and not passing flatus -: abd pain is better,slight nausea -: Mild SOB - Objective MAR Reviewed: Yes Vital Signs & Weight: Vital Signs (12 hours) Temp Pulse Resp BP Pulse Ox 09/14/18 07:31 97.3 F L 84 18 121/64 95 09/14/18 04:00 97.8 F 81 18 120/63 94 L Weight Weight 170 lb I&O: 09/13/18 09/14/18 09/15/18 06:59 06:59 06:59 Intake Total 2500 3800 Balance 2500 3800 Result Diagrams: 09/14/18 06:42 09/14/18 05:40 Additional Labs: Accuchecks 09/14/18 09/13/18 09/13/18 06:08 23:42 15:23 POC Glucose 68 L 99 193 H 09/13/18 11:32 POC Glucose 166 H Microbiology 09/11/18 Unknown Pleural fluid Acid Fast Bacilli Smear - Final 09/11/18 Unknown Pleural fluid Body Fluid Culture - Preliminary Phys Exam - Physical Examination Constitutional: NAD HEENT: PERRLA, moist MMs, sclera anicteric, oral pharynx no lesions Neck: no nodes, no JVD, supple, full ROM Respiratory: no wheezing, no rales, no rhonchi, clear to auscultation bilateral Cardiovascular: RRR, no significant murmur, no rub Gastrointestinal: soft, positive bowel sounds (distant) more distended today,TTP Left side Musculoskeletal: no edema, pulses present Neurological: non-focal, normal sensation, moves all 4 limbs Psychiatric: normal affect, A&O x 3 Skin: no rash Dx/Plan (1) Sigmoid diverticulitis Code(s): K57.32 - DVTRCLI OF LG INT W/O PERFORATION OR ABSCESS W/O BLEEDING Status: Acute Comment: with perforation.Conservative Managment .on IV ABx (2) Pleural effusion Code(s): J90 - PLEURAL EFFUSION, NOT ELSEWHERE CLASSIFIED Status: Acute Comment: S/P thoracentesis. exudative in nature. Pathology and microbiology pending (3) DM2 (diabetes mellitus, type 2) Status: Chronic (4) HTN (hypertension) Code(s): I10 - ESSENTIAL (PRIMARY) HYPERTENSION Status: Chronic (5) CKD (chronic kidney disease) stage 3, GFR 30-59 ml/min Code(s): N18.3 - CHRONIC KIDNEY DISEASE, STAGE 3 (MODERATE) Status: Chronic Comment: s/p R nephrectomy 15 yrs ago (6) Chronic diastolic CHF (congestive heart failure), NYHA class 2 Code(s): I50.32 - CHRONIC DIASTOLIC (CONGESTIVE) HEART FAILURE Status: Chronic - Plan continue antibiotics, PT/OT, respiratory therapy, incentive spirometry, out of bed/ambulate, DVT proph w/SCDs given H/O CHF,will reduce IVF as she seems somewhat SOB w conversation -: lasix on hold d/t low BP & dehydration/NPO status -: will give 1 dose lasix IV and monitor fluid status -: cont zosyn.Bandemia improving but clinically not much improved -: ambulate.discussed w PT.Coreg & cozaar on hold-BP better today * .IM team will follow. * AM labs Review of Systems - Review of Systems Constitutional: weakness, malaise. negative: fever, chills, sweats, other ENT: negative: Ear Pain, Ear Discharge, Nose Pain, Nose Discharge, Nose Congestion, Mouth Pain, Mouth Swelling, Throat Pain, Throat Swelling, Other Respiratory: negative: Cough, Dry, Shortness of Breath, Hemoptysis, SOB with Excertion, Pleuritic Pain, Sputum, Wheezing Cardiovascular: negative: chest pain, palpitations, orthopnea, paroxysmal nocturnal dyspnea, edema, light headedness, other Gastrointestinal: Nausea, Abdominal Pain. negative: Vomiting, Diarrhea, Constipation, Melena, Hematochezia, Other Genitourinary: negative: Dysuria, Frequency, Incontinence, Hematuria, Retention , Other Musculoskeletal: negative: Neck Pain, Shoulder Pain, Arm Pain, Back Pain, Hand Pain, Leg Pain, Foot Pain, Other Neurological: negative: Weakness, Numbness, Incoordination, Change in Speech, Confusion, Seizures, Other - Medications/Allergies Allergies/Adverse Reactions: Allergies Allergy/AdvReac Type Severity Reaction Status Date / Time No Known Allergies Allergy Unverified 09/11/18 13:24 Medications: Current Medications Albuterol/Ipratropium (Duoneb) 3 ml NEB [id number] PRN PRN Reason: SOB &/or Wheezing Clonidine (Catapres) 0.1 mg PO TIDPRN PRN PRN Reason: Hypertension Enoxaparin Sodium (Lovenox) 30 mg SC 2100 [facility] Last Admin: 09/13/18 20:33 Dose: 30 mg Furosemide (Lasix) 20 mg SLOW IVP NOW [facility] Stop: 09/14/18 12:30 Last Admin: 09/14/18 10:36 Dose: 20 mg Glucagon (Glucagon) 1 mg IM PRN PRN PRN Reason: Hypoglycemia Hydralazine HCl (Apresoline) 10 mg SLOW IVP Q4H PRN PRN Reason: SBP > 170 or DBP > 100 Dextrose/Water (D5w) 1,000 mls @ 0 mls/hr IV .Q0M PRN PRN Reason: Hypoglycemia Piperacillin Sod/Tazobactam (Sod 3.375 gm/ Sodium Chloride) 100 mls @ 200 mls/ hr IVPB Q6HR [facility] Last Admin: 09/14/18 06:24 Dose: 100 mls Dextrose/Sodium Chloride (D5 0.9% Ns) 1,000 mls @ 75 mls/hr IV .[id number] [facility] Last Admin: 09/14/18 09:23 Dose: Not Given Insulin Human Lispro (Humalog) 0 units SC .MODERATE SLIDING SC PRN PRN Reason: Moderate Correctional Scale Morphine Sulfate (Morphine) 2 mg SLOW IVP Q2H PRN PRN Reason: Mild Pain (1-3) Last Admin: 09/14/18 06:28 Dose: 2 mg Morphine Sulfate (Morphine) 4 mg SLOW IVP Q2H PRN PRN Reason: Moderate Pain (4-6) Last Admin: 09/13/18 20:33 Dose: 4 mg Pantoprazole Sodium (Protonix) 40 mg IVP DAILY [facility] Last Admin: 09/14/18 07:58 Dose: 40 mg Sodium Chloride (Flush - Normal Saline) 10 ml IVF PRN PRN PRN Reason: Saline Flush Last Admin: 09/14/18 07:58 Dose: 10 ml
--- NOTE | 2018-09-14 17:59 | PRG ---
DATE OF SERVICE: 09/14/2018 SUBJECTIVE: Ms. Silva is feeling a little bit better today in terms of her pain. She does have occasional nausea, but has been having this for sometime even before she came in with her diverticulitis. She has not thrown up. She does not think she has passed gas, but she also has not been ambulating except for just a few feet in the room. She does ambulate at home using a cane, but yesterday, when the nurse was helping her transfer to a chair, the family became alarmed because the patient sat down heavily since they do not feel comfortable having her ambulate with anybody, but PT. The patient has been up to a chair and did walk in the room with physical therapy today. She has been afebrile. Her vital signs are normal. She is on 2 L of nasal cannula and does not use home O2, but has been using her incentive spirometer. Urine output is not quantified. White count is normal, and her bandemia is improved. Electrolytes are unremarkable. Blood sugars have ranged from 68 to 193. Thoracentesis cultures are still pending for mycobacteria, but the regular culture is negative, although many white blood cells were seen. PHYSICAL EXAMINATION: ABDOMEN: Soft and nondistended. She does have bowel sounds, but she is still moderately tender in the left greater than right lower abdomen. She does not exhibit rigidity, rebound, or guarding. ASSESSMENT: Complicated diverticulitis with a pericolonic fluid collection. This is fairly small. The patient is slowly improving on IV antibiotics, although she has not had a bowel movement recently and does not recall passing gas. I will order a plain film for tomorrow morning, but given her age, comorbidities, and obesity, I would prefer not to operate unless she worsens clinically. Job ID: [id number]
[2018-09-14] MEDS ORDERED: Sodium Chloride 0.45% 1,000 ML IV SCH (18:00)
[2018-09-14] MEDS: Simethicone Chewable 80 MG TAB PO SCH ×2 (18:28→20:46)
--- NOTE | 2018-09-14 18:37 | PRG ---
DATE OF SERVICE: 09/14/2018 SERVICE: Pulmonary Medicine. INTERVAL HISTORY: The patient did well today. Abdominal discomfort persists. That being said, she is going further without requiring any pain medication. She denies any current fevers, chills, nausea, or vomiting. She is breathing comfortably. She has not passed any gas or any bowel movements, but she is tolerating p.o. for the most part. PHYSICAL EXAMINATION: VITAL SIGNS: Afebrile, pulse 75, blood pressure 129/82, respirations 16, and saturation 90% on 2 L nasal cannula. GENERAL: The patient is awake and alert, in no apparent distress. LUNGS: Decent air entry. Crackles are present dependently. No prolonged expiratory phase or wheezing is appreciated. HEART: Normal rate and regular. ABDOMEN: Soft, nontender, and nondistended. Bowel sounds are positive. MUSCULOSKELETAL: No cyanosis or clubbing. There is no pitting in the bilateral lower extremities. NEUROLOGIC: Grossly nonfocal. LABORATORY DATA: WBC 9.3, hemoglobin 12.5, and platelets 114,000 and stable. Band count is dropping off to 26% on top of 65% neutrophils. INR 1.0. Creatinine 1.09, which is downtrending. Basic metabolic profile is otherwise unremarkable. Chloride 115. Liver function studies are unremarkable. Thoracentesis fluid has an elevated LDH, elevated total protein, and is lymphocyte and nonhematologic cell predominant. PH was normal. Glucose was normal. Triglycerides and amylase were both low. Cultures including routine culture and acid-fast bacilli culture are negative to date. Pathology is currently pending. ASSESSMENT: 1. Pleural effusion, status post thoracentesis. 2. Diverticulitis, currently being managed conservatively with antibiotics. DISCUSSION AND PLAN: We will continue supportive care including antibiotics. I will increase the free water ever so slightly, and we will schedule some simethicone for the patient moving forward. Pulmonary Critical Care will continue to follow along while the patient remains in house. Pathology is currently pending on the thoracentesis studies. Job ID: [id number]
[2018-09-14] MEDS: Enoxaparin Sodium 30 MG/0.3 ML SYRINGE SC SCH (20:46)
[2018-09-15] MEDS: Piperacillin/Tazobactam 3.375 GM in Sodium Chloride 0.9% 100 ML IVPB SCH ×4 (00:08→18:24)
[2018-09-15] MEDS: Morphine 4 MG/ML VIAL SLOW IVP PRN ×3 (00:08→20:31)
[2018-09-15 06:16] LABS: Band 24 % (5-11); Hemoglobin 13.3 g/dL (12.0-16.0); Lymphocytes 1 % (21-51); MDiff Complete? YES; Mean Corpuscular Hemoglobin 31.5 pg (27.0-31.0); Mean Corpuscular Volume 95.4 fL (78.0-98.0); Mean Platelet Volume 7.8 fL (7.4-10.4); Monocytes 3 % (0-10); Neutrophil 72 % (42-75); Platelet Count 123 thou/uL (130-400); RBC Distribution Width 12.8 % (11.5-14.5); Red Blood Cell (RBC) Count 4.24 mill/uL (4.20-5.40); White Blood Cell (WBC) Count 12.5 thou/uL (4.8-10.8)
[2018-09-15 06:17] LABS: ALT (SGPT) 11 U/L (8-55); AST (SGOT) 12 U/L (5-34); Alkaline Phosphatase 69 U/L (40-150); Anion Gap 14 mmol/L (10-20); BUN (Urea Nitrogen) 19 mg/dL (9.8-20.1); Bilirubin, Total 0.4 mg/dL (0.2-1.2); Calc. Creatinine Clearance 50 mL/min (70-130); Calcium 7.1 mg/dL (7.8-10.44); Carbon Dioxide 20 mmol/L (23-31); Chloride 113 mmol/L (98-107); Estimated GFR-MDRD 52; Globulin 2.5 g/dL (2.4-3.5); Glucose 95 mg/dL (83-110); Phosphorus 2.7 mg/dL (2.3-4.7); Potassium 3.1 mmol/L (3.5-5.1); Protein, Total 4.5 g/dL (6.0-8.3); Sodium 144 mmol/L (136-145)
[2018-09-15] MEDS: Dextrose 5 %-0.45 % NaCl 1,000 ML IV SCH (06:50)
[2018-09-15] MEDS ORDERED: Potassium Chloride 40 MEQ in Premix Bag 1 BAG IVPB SCH (07:30)
[2018-09-15] MEDS: Simethicone Chewable 80 MG TAB PO SCH ×3 (07:41→20:31)
[2018-09-15] MEDS: Pantoprazole 40 MG VIAL IVP SCH (07:41)
[2018-09-15] MEDS: Potassium Chloride 20 MEQ in Premix Bag 1 BAG IVPB SCH ×2 (09:39→12:23)
--- NOTE | 2018-09-15 10:00 | RAD ---
ABDOMEN 1 VIEW: Date: 09/15/18 HISTORY: Diverticulitis. FINDINGS/IMPRESSION: The bowel gas pattern is unremarkable. There is residual contrast in the colon. There is colonic dive rticulosis. There are postop changes in the abdomen and pelvis. POS: [facility]
--- NOTE | 2018-09-15 11:19 | PDOC.PN ---
- Subjective Encounter Start Date: 09/15/18 Encounter Start Time: 11:17 Subjective: feesl about the same.no increase in cande -: no flatus or BM -: abd pain tolerable nausea this morning - Objective MAR Reviewed: Yes Vital Signs & Weight: Vital Signs (12 hours) Temp Pulse Resp BP BP Pulse Ox 09/15/18 08:00 98.2 F 84 18 115/74 93 L 09/15/18 04:28 93 L 09/15/18 03:04 97.8 F 83 16 112/76 93 L 09/14/18 23:27 98.2 F 91 20 130/81 93 L Weight Weight 170 lb I&O: 09/14/18 09/15/18 09/16/18 06:59 06:59 06:59 Intake Total 3800 2595 Output Total 150 Balance 3800 2445 Result Diagrams: 09/15/18 04:24 09/15/18 04:25 Additional Labs: Accuchecks 09/15/18 09/14/18 09/14/18 05:32 23:25 17:55 POC Glucose 105 100 125 H 09/14/18 11:45 POC Glucose 86 Microbiology 09/11/18 Unknown Pleural fluid Acid Fast Bacilli Smear - Final 09/11/18 Unknown Pleural fluid Body Fluid Culture - Preliminary 09/11/18 Unknown Pleural fluid Body Fluid Culture - Preliminary Phys Exam - Physical Examination Constitutional: NAD HEENT: PERRLA, moist MMs, sclera anicteric, oral pharynx no lesions Neck: no nodes, no JVD, supple, full ROM Respiratory: no wheezing, no rales, no rhonchi, clear to auscultation bilateral Cardiovascular: RRR, no significant murmur, no rub Gastrointestinal: soft, positive bowel sounds mild distension.TTP in the same area of LLQ Musculoskeletal: no edema, pulses present Neurological: non-focal, normal sensation, moves all 4 limbs Psychiatric: normal affect, A&O x 3 Skin: no rash Dx/Plan (1) Sigmoid diverticulitis Code(s): K57.32 - DVTRCLI OF LG INT W/O PERFORATION OR ABSCESS W/O BLEEDING Status: Acute Comment: with perforation.Conservative Managment .on IV ABx (2) Pleural effusion Code(s): J90 - PLEURAL EFFUSION, NOT ELSEWHERE CLASSIFIED Status: Acute Comment: S/P thoracentesis. exudative in nature. Pathology and microbiology pending (3) DM2 (diabetes mellitus, type 2) Status: Chronic (4) HTN (hypertension) Code(s): I10 - ESSENTIAL (PRIMARY) HYPERTENSION Status: Chronic (5) CKD (chronic kidney disease) stage 3, GFR 30-59 ml/min Code(s): N18.3 - CHRONIC KIDNEY DISEASE, STAGE 3 (MODERATE) Status: Chronic Comment: s/p R nephrectomy 15 yrs ago (6) Chronic diastolic CHF (congestive heart failure), NYHA class 2 Code(s): I50.32 - CHRONIC DIASTOLIC (CONGESTIVE) HEART FAILURE Status: Chronic - Plan plan discussed w/ family, continue antibiotics, PT/OT, respiratory therapy, incentive spirometry, out of bed/ambulate, DVT proph w/SCDs KUB shows johana exam.no freeair.cont zosyn -: replace and recheck potassium -: blood sugar stable.on D51/2 NS -: Pleural fluid path pending.Micro negative so far -: WBC high today.cotinue to trend.IM team will follow * . Review of Systems - Review of Systems Constitutional: weakness, malaise Eyes: negative: Pain, Vision Change, Conjunctivae Inflammation, Eyelid Inflammation, Redness, Other Respiratory: negative: Cough, Dry, Shortness of Breath, Hemoptysis, SOB with Excertion, Pleuritic Pain, Sputum, Wheezing Cardiovascular: negative: chest pain, palpitations, orthopnea, paroxysmal nocturnal dyspnea, edema, light headedness, other Gastrointestinal: Nausea, Abdominal Pain. negative: Vomiting, Diarrhea, Constipation, Melena, Hematochezia, Other Genitourinary: negative: Dysuria, Frequency, Incontinence, Hematuria, Retention , Other Musculoskeletal: negative: Neck Pain, Shoulder Pain, Arm Pain, Back Pain, Hand Pain, Leg Pain, Foot Pain, Other Neurological: negative: Weakness, Numbness, Incoordination, Change in Speech, Confusion, Seizures, Other - Medications/Allergies Allergies/Adverse Reactions: Allergies Allergy/AdvReac Type Severity Reaction Status Date / Time No Known Allergies Allergy Unverified 09/11/18 13:24 Medications: Current Medications Albuterol/Ipratropium (Duoneb) 3 ml NEB [id number] PRN PRN Reason: SOB &/or Wheezing Clonidine (Catapres) 0.1 mg PO TIDPRN PRN PRN Reason: Hypertension Enoxaparin Sodium (Lovenox) 30 mg SC 2100 [facility] Last Admin: 09/14/18 20:46 Dose: 30 mg Glucagon (Glucagon) 1 mg IM PRN PRN PRN Reason: Hypoglycemia Hydralazine HCl (Apresoline) 10 mg SLOW IVP Q4H PRN PRN Reason: SBP > 170 or DBP > 100 Dextrose/Water (D5w) 1,000 mls @ 0 mls/hr IV .Q0M PRN PRN Reason: Hypoglycemia Piperacillin Sod/Tazobactam (Sod 3.375 gm/ Sodium Chloride) 100 mls @ 200 mls/ hr IVPB Q6HR [facility] Last Admin: 09/15/18 05:38 Dose: 100 mls Dextrose/Sodium Chloride (D5 1/2 Ns) 1,000 mls @ 75 mls/hr IV .[id number] [facility] Last Admin: 09/15/18 06:50 Dose: 1,000 mls Potassium Chloride 20 meq/ (Device) 100 mls @ 50 mls/hr IVPB Q2H [facility] Stop: 09/15/18 11:59 Last Admin: 09/15/18 09:39 Dose: 100 mls Insulin Human Lispro (Humalog) 0 units SC .MODERATE SLIDING SC PRN PRN Reason: Moderate Correctional Scale Morphine Sulfate (Morphine) 2 mg SLOW IVP Q2H PRN PRN Reason: Mild Pain (1-3) Last Admin: 09/15/18 10:26 Dose: 2 mg Pantoprazole Sodium (Protonix) 40 mg IVP DAILY [facility] Last Admin: 09/15/18 07:41 Dose: 40 mg Simethicone (Mylicon Chewable) 80 mg PO [facility] Stop: 09/15/18 19:01 Last Admin: 09/15/18 07:41 Dose: 80 mg Sodium Chloride (Flush - Normal Saline) 10 ml IVF PRN PRN PRN Reason: Saline Flush Last Admin: 09/15/18 07:41 Dose: 10 ml
--- NOTE | 2018-09-15 13:41 | PRG ---
DATE OF SERVICE: 09/15/2018 Ms. Silva states that she is not having much pain. She also denies nausea. She is afebrile with normal vital signs, saturating 93% on 2 L. White count actually went up a little bit today to 12.5 with 24 bands. Potassium is 3.1, but has been replaced. Her abdomen is soft and nondistended. She is still worker helper to palpation in the left lower quadrant greater than right lower quadrant, but does not exhibit rigidity, rebound, or guarding. ASSESSMENT: Diverticulitis. Slow to respond to IV antibiotics. The patient still denies having passed any gas and an abdominal film obtained earlier today did not show any contrast in the rectum, although there is contrast in the descending colon. Small bowel does not look dilated, however, and the patient is not complaining of nausea. We will see how she responds to antibiotics over the next 24 hours. If she continues to have evidence of obstruction, then surgery may be necessary. Job ID: [id number]
--- NOTE | 2018-09-15 15:58 | PRG ---
DATE OF SERVICE: 09/15/2018 SUBJECTIVE: Ms. Silva was sitting in a bedside chair. Her daughter says she sat up for an hour yesterday. OBJECTIVE: VITAL SIGNS: She is afebrile, heart rate 79, respiratory rate 16, oximetry is 92 on 2L, and blood pressure 108/73. LUNGS: Remarkable for tubular breath sounds at both lung bases, consistent with atelectasis. HEART: Regular rhythm. ABDOMEN: Soft. She has been minimally tender in the left lower quadrant. LABORATORY DATA: White count 12.5, hemoglobin 13.3, and platelets 123,000. Sodium 144, potassium 3.1, chloride 113, bicarb 20, BUN 19, and creatinine 1.01. IMPRESSION: 1. Exudative pleural effusion, still no pathology. 2. Diverticulitis, hoping to avoid surgery. 3. Advanced age. 4. Deconditioning, walking with a cane prior to admission. 5. Reactive effusion associated with diverticulitis. PLAN: Continue supportive care. Hopefully, she can avoid an operative procedure. Job ID: [id number]
[2018-09-15] MEDS: Enoxaparin Sodium 30 MG/0.3 ML SYRINGE SC SCH (20:30)
[2018-09-16] MEDS: Dextrose 5 %-0.45 % NaCl 1,000 ML IV SCH ×4 (01:10→23:16)
[2018-09-16] MEDS: Piperacillin/Tazobactam 3.375 GM in Sodium Chloride 0.9% 100 ML IVPB SCH ×5 (01:10→23:05)
[2018-09-16] MEDS: Morphine 4 MG/ML VIAL SLOW IVP PRN (04:03)
[2018-09-16] MEDS ORDERED: Ondansetron PF 4 MG/2 ML Vial IVP PRN (04:57)
[2018-09-16] MEDS: HumaLOG 300 UNITS/3 ML VIAL SC PRN (06:15)
[2018-09-16 06:52] LABS: ALT (SGPT) 11 U/L (8-55); AST (SGOT) 14 U/L (5-34); Albumin 1.8 g/dL (3.4-4.8); Alkaline Phosphatase 63 U/L (40-150); Anion Gap 14 mmol/L (10-20); BUN (Urea Nitrogen) 22 mg/dL (9.8-20.1); Bilirubin, Total 0.3 mg/dL (0.2-1.2); Calc. Creatinine Clearance 50 mL/min (70-130); Calcium 6.8 mg/dL (7.8-10.44); Carbon Dioxide 17 mmol/L (23-31); Chloride 114 mmol/L (98-107); Estimated GFR-MDRD 53; Globulin 2.6 g/dL (2.4-3.5); Glucose 199 mg/dL (83-110); Potassium 3.6 mmol/L (3.5-5.1); Protein, Total 4.4 g/dL (6.0-8.3); Sodium 141 mmol/L (136-145)
[2018-09-16 07:07] LABS: Phosphorus 1.8 mg/dL (2.3-4.7)
[2018-09-16] MEDS ORDERED: Potassium Phosphate 20 MMOL in Sodium Chloride 0.9% 250 ML 250 ML IVPB SCH (08:30)
--- NOTE | 2018-09-16 08:37 | PRG ---
DATE OF SERVICE: 09/16/2018 SUBJECTIVE: Ms. Silva is still requiring pain medications. She is still having pain from diverticulitis. OBJECTIVE: CARDIAC: Regular rate and rhythm. PULMONARY: Occasional expiratory wheeze, rhonchi base. ABDOMEN: Soft, guarding, tenderness in all quadrants, more severe left lower quadrant. LABORATORY DATA: White count 12, hemoglobin 13, and 24% bands. Sodium 141, potassium 3.6, chloride 114, BUN 22, creatinine 1. ASSESSMENT AND PLAN: Refractory diverticulitis to medical management. We will plan operative management have thoroughly discuss with her son and patient have discussed risks of infection, bleeding, reoperation, deconditioning, need for LTAC rehab and the fact that she may not do well with her chronic kidney disease. We will plan laparotomy, colon resection, colostomy, and central line. She will need TPN postoperatively. She will need a ventilator postoperatively and go with ICU postoperatively. Job ID: [id number]
[2018-09-16] MEDS: Pantoprazole 40 MG VIAL IVP SCH (08:58)
[2018-09-16] MEDS ORDERED: Midazolam HCl 2 mg/2 ml Vial ONE (10:13)
[2018-09-16] MEDS ORDERED: Fentanyl 100 MCG/2 ML VIAL ONE ×2 (10:13→13:16)
[2018-09-16 11:01] LABS: Hemoglobin 13.4 g/dL (12.0-16.0); Mean Corpuscular HGB CONC 32.6 g/dL (32.0-36.0); Mean Corpuscular Hemoglobin 30.9 pg (27.0-31.0); Mean Corpuscular Volume 94.7 fL (78.0-98.0); Mean Platelet Volume 7.7 fL (7.4-10.4); Platelet Count 98 thou/uL (130-400); RBC Distribution Width 12.8 % (11.5-14.5); Red Blood Cell (RBC) Count 4.33 mill/uL (4.20-5.40); White Blood Cell (WBC) Count 12.1 thou/uL (4.8-10.8)
[2018-09-16 12:01] LABS: Band 23 % (5-11); Lymphocytes 4 % (21-51); MDiff Complete? YES; Monocytes 2 % (0-10); Myelocyte 1 % (0-0); Neutrophil 68 % (42-75); RBC Morphology Normal; Reactive Lymphocytes 2 % (0-10)
[2018-09-16] MEDS ORDERED: Ondansetron PF 4 MG/2 ML Vial ONE (12:40)
[2018-09-16] MEDS ORDERED: Sodium Chloride 0.9% 20 ML ONE (13:02)
--- NOTE | 2018-09-16 13:16 | PDOC.EVN ---
Event Note - Event Note Event Note: Went to see Pt this morning but she has been taken taken to OR per primary team for diverticulitis with abscess refractory to conservative management. IM team will continue to follow. labs in am. replace and recheck yadira
[2018-09-16] MEDS ORDERED: Bupivacaine PF 0.5% 30 ML VIAL ONE (13:53)
[2018-09-16] MEDS ORDERED: Phenylephrine HCL 10 MG/ML VIAL ONE (14:37)
[2018-09-16] MEDS ORDERED: Albumin 25% 0 ML ONE (14:38)
[2018-09-16] MEDS ORDERED: Albumin 5% 500 ML ONE (14:38)
[2018-09-16] MEDS ORDERED: Bupivacaine HCl 0.5%/Epinephrine 1:200,000/PF 30 ml Vial ONE (15:29)
[2018-09-16] MEDS ORDERED: Fentanyl BOLUS 250 ML IVPB PRN (15:55)
[2018-09-16] MEDS ORDERED: DISCONTINUE PREVIOUS NARCOTIC PAIN MEDICATIONS AND BENZODIAZEPINES FS SCH (15:55)
[2018-09-16] MEDS ORDERED: Propofol BOLUS 1,000 MG/100 ML VIAL IV PRN (15:55)
[2018-09-16] MEDS ORDERED: Lorazepam 2 MG/ML VIAL SLOW IVP PRN (15:55)
[2018-09-16] MEDS ORDERED: Morphine 2 MG/ML SYRINGE SLOW IVP PRN (15:55)
[2018-09-16] MEDS ORDERED: Propofol 1,000 MG/100 ML VIAL IV PRN (15:55)
[2018-09-16] MEDS ORDERED: fentaNYL Citrate/PF 2,000 MCG in Sodium Chloride 0.9% 60 ML IV SCH (15:55)
[2018-09-16] MEDS ORDERED: Dextrose 5 %-0.45 % NaCl 1,000 ML IV SCH (15:57)
[2018-09-16] MEDS ORDERED: Ventilator Sedation Protocol 1 EACH FS SCH (16:00)
[2018-09-16] MEDS ORDERED: Lactated Ringer's 1,000 ML IV SCH (16:00)
[2018-09-16 16:11] LABS: Actual Bicarbonate (HCO3a) 17.8 mEq/L (22-28); Base Excess (BEa) -7.1 mEq/L (-2.0 to +3.0); CO2 Tension 33.5 mmHg (35.0-45.0); Calcium, Ionized 1.05 mmol/L (1.12-1.30); Carboxyhemoglobin (COHb) 1.1 gm% (0.0-3.0); Hemoglobin (Hb) 10.1 g/dL (12.0-16.0); Potassium - ABG Lab 3.46 mmol/L (3.70-5.30); pH, Arterial 7.34 (7.35-7.45)
[2018-09-16 16:13] LABS: ALV-art Gradient 165.325 (0-20); Puncture Site LRA
[2018-09-16 16:45] LABS: Band 10 % (5-11); Eosinophils 1 % (0-10); Hemoglobin 9.7 g/dL (12.0-16.0); Lymphocytes 6 % (21-51); MDiff Complete? YES; Mean Corpuscular HGB CONC 33.5 g/dL (32.0-36.0); Mean Corpuscular Hemoglobin 31.5 pg (27.0-31.0); Mean Corpuscular Volume 94.1 fL (78.0-98.0); Mean Platelet Volume 7.1 fL (7.4-10.4); Monocytes 1 % (0-10); Neutrophil 82 % (42-75); PLT Morphology Comment Appears Decreased; Platelet Count 71 thou/uL (130-400); RBC Distribution Width 12.8 % (11.5-14.5); Red Blood Cell (RBC) Count 3.06 mill/uL (4.20-5.40); White Blood Cell (WBC) Count 5.4 thou/uL (4.8-10.8)
--- NOTE | 2018-09-16 16:46 | PRG ---
DATE OF SERVICE: 09/16/2018 SUBJECTIVE: Leigha Silva today is still hurting. She has required morphine. blood pressure 111/59, respiratory rate 15, heart rate 85. This morning, her white count is 12.1, hemoglobin 13, bands 23%. Her basic metabolic profile has improved. Her BUN is 22, creatinine 1, glucose 199. OBJECTIVE: LUNGS: Clear to auscultation. CARDIAC: Regular rhythm without murmur or gallop. ABDOMEN: Bowel sounds present. She has tenderness throughout her abdomen with guarding in her left lower quadrant. Her tenderness in her upper abdomen seems a little worse today than when I last saw her 2 days ago. ASSESSMENT AND PLAN: Failed diverticulitis nonoperative treatment. I have recommended exploratory laparotomy, colon resection, Abad pouch, central line. I have discussed with the patient and her son. Questions answered. We will proceed today. Job ID: [id number]
--- NOTE | 2018-09-16 16:55 | RAD ---
CHEST ONE VIEW: 09/16/18 HISTORY: Central line. Ventilated patient. COMPARISON: Radiograph of 09/11/18. FINDINGS: Patient intubated with endotracheal tube tip over the clavicles in good position. Enteric tube tip in gastric body. Central venous catheter tip projects over the right subclavian vein. IMPRESSION: The left subclavian central venous catheter tip crosses the midline and tip project over the right lassiter bclavian vein. POS: SUSI
[2018-09-16 16:58] LABS: ALT (SGPT) Less than 7 U/L (8-55); AST (SGOT) 8 U/L (5-34); Albumin 1.8 g/dL (3.4-4.8); Alkaline Phosphatase 40 U/L (40-150); Anion Gap 10 mmol/L (10-20); BUN (Urea Nitrogen) 22 mg/dL (9.8-20.1); Bilirubin, Total 0.5 mg/dL (0.2-1.2); Calc. Creatinine Clearance 59 mL/min (70-130); Calcium 6.8 mg/dL (7.8-10.44); Carbon Dioxide 18 mmol/L (23-31); Chloride 117 mmol/L (98-107); Estimated GFR-MDRD 64; Globulin 1.5 g/dL (2.4-3.5); Glucose 150 mg/dL (83-110); Potassium 3.5 mmol/L (3.5-5.1); Protein, Total 3.3 g/dL (6.0-8.3); Sodium 141 mmol/L (136-145)
[2018-09-16] MEDS ORDERED: Potassium Chloride 40 MEQ in Sodium Chloride 0.9% 500 ML IVPB SCH (17:00)
--- NOTE | 2018-09-16 17:07 | PRG ---
DATE OF SERVICE: 09/16/2018 SERVICE: Pulmonary Medicine. INTERVAL HISTORY: The patient went down to the operating room today. She was brought back on mechanical ventilation. Dr. Henry discovered a large abscess in the belly. Ultimately, dissection of the colon was removed. The colostomy was created. She cannot provide any additional elements of the history because she is currently on sedation, and mechanical ventilation. OBJECTIVE: VITAL SIGNS: Afebrile currently. Pulse 91, blood pressure 111/59, respirations 15, saturation 99% on 27% FiO2, and a PEEP of 5. GENERAL: The patient is intubated and sedated. HEENT: Normocephalic and atraumatic. Sclerae white. Conjunctivae pink. Oral mucosa is moist without lesions. LUNGS: Excellent air entry. There is no prolonged expiratory phase, wheezing, rhonchi, or crackles present. HEART: Normal rate and regular. ABDOMEN: Soft, nontender, and nondistended. Bowel sounds are positive. MUSCULOSKELETAL: No cyanosis or clubbing. No pitting in the bilateral lower extremities. NEUROLOGIC: Grossly nonfocal. LABORATORY DATA: WBC 12.1, hemoglobin 13.4, platelets 98,000 and dropping gently. INR 1.0. pH 7.34, pCO2 of 33, pO2 of 78. Creatinine 1.00 and stable. Anion gap is normal, bicarb 17. Potassium 3.6. Liver function studies are unremarkable. Phosphorus is 1.8. Magnesium 2.0. Cytology is still pending on the thoracentesis. IMAGING STUDIES: Chest x-ray demonstrates endotracheal tube, which is roughly 6 cm above the level of the jasmin. Enteric catheter courses in midline below the level of the diaphragm. I believe the left-sided subclavian central line crosses into the right side of the chest and does not take a turn toward the heart. There is left-sided pleural-parenchymal opacification present. ASSESSMENT: 1. Pleural effusion, status post thoracentesis, pathology pending. 2. Diverticulitis, status post surgical intervention with colostomy formation, postop day #0. 3. 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 DISCUSSION AND PLAN: The patient is doing fine from respiratory standpoint. We will replace the potassium and phosphorus. I have made multiple adjustments in mechanical ventilator in order to minimize dyssynchrony. We will wean oxygen as tolerated. From my perspective, she will likely be a good candidate for extubation tomorrow morning if she has an uncomplicated evening. Cytology on the thoracentesis is currently pending. Critical care time: 30 minutes. Job ID: [id number] MTDD
[2018-09-16] MEDS: Albumin 25% 25 GM/100 ML BOT IVPB SCH ×2 (17:34→23:05)
[2018-09-16] MEDS ORDERED: PROPOFOL 200 MG/20 ML VIAL ONE (18:54)
[2018-09-16] MEDS ORDERED: Calcium Chloride 1 GM/10 ML Abboject SYRINGE ONE (18:54)
[2018-09-16] MEDS ORDERED: ePHEDrine/0.9% NaCl/PF SYRINGE 50 mg/10 ml ONE (18:54)
[2018-09-16] MEDS ORDERED: Lidocaine 1% PF 5 ML VIAL ONE (18:54)
[2018-09-16] MEDS: Enoxaparin Sodium 30 MG/0.3 ML SYRINGE SC SCH (20:20)
--- NOTE | 2018-09-16 23:21 | OP ---
DATE OF PROCEDURE: 09/16/2018 PREOPERATIVE DIAGNOSES: Severe diverticulitis, obesity, adhesives from prior surgery. POSTOPERATIVE DIAGNOSES: Severe diverticulitis, obesity, adhesives from prior surgery. PROCEDURES: Left subclavian vein line placed by Anesthesia. Laparotomy with sigmoid colon resection, Abad's pouch and colostomies, Abad's pouch marked with 2-0 Prolene. Adhesiolysis. FINDINGS: Loculated abscess with feces and gas, anterior abdominal wall. ANESTHESIA: General. LOCAL: None. DESCRIPTION OF PROCEDURE: The patient was taken to the operating room under general anesthesia and anesthesia was first placed in the left subclavian vein central line. Abdomen was then prepared with ChloraPrep and draped in routine fashion. Midline incision was made and carried down through skin and subcutaneous tissue, midline fascia, and abdominal cavity sharply. Intraperitoneal abscess between the sigmoid colon and abdominal wall was opened, gas and fecal material evacuated. Adhesions taken down from prior surgery and from the inflammatory condition. Left colon was mobilized. Splenic flexure mobilized using the LigaSure and cautery. Descending colon mobilized. Left ureter kept free of harm. There was some bleeding from varicocele of the left ovarian complex, vascular pedicle and these were controlled with LigaSure, keeping the left ureter free of harm (prior right nephrectomy). Severe phlegmon in the sigmoid colon was dissected free, proximal colon divided at mesentry between 2-0 silk ties and LigaSure dividing the colon with JUSTEN stapler and mesentery serially divided between clamps, 2-0 silk ties and LigaSure down to the lower sigmoid and upper rectum which was divided with a contour JUSTEN stapler and stump marked with a 2-0 Prolene. Colon removed, submitted to Pathology. Hemostasis gained with the cautery. 2-0 silk ties, 3-0 silk ties, and LigaSure. Good hemostasis noted. Abdominal cavity thoroughly irrigated with 5 L of saline solution. Defect made in the left lower quadrant abdominal wall between the umbilicus and the anterior superior iliac spine left and surgery defect of skin excised sharply. A plug of subcutaneous tissue excised from overlying the rectus fascia, where cruciate incision was made and rectus muscles were split medially and laterally, and posterior fascia peritoneum opened and dilated with two fingerbreadths. The colon brought through this defect. Abdominal cavity was thoroughly irrigated. Sponge and needle counts were correct. Good hemostasis noted. Seprafilm was placed between the omentum covering the viscera and the abdominal wall. Fascia was closed with continuous suture and #1 PDS. Skin and subcutaneous tissues were loosely approximated about the umbilicus with lisette. Wound VAC applied. Colostomy maturation undertaken excising the staple line from the descending colon and colostomy maturation undertaken with 4 Wandy sutures of 3-0 Vicryl and simple sutures of 3-0 Vicryl. Colostomy appliance secured. The patient tolerated the procedure well, transferred to the ICU in critical condition. Job ID: [id number]
[2018-09-16 23:41] LABS: Band 30 % (5-11); Hemoglobin 11.3 g/dL (12.0-16.0); Lymphocytes 3 % (21-51); MDiff Complete? YES; Mean Corpuscular HGB CONC 33.8 g/dL (32.0-36.0); Mean Corpuscular Hemoglobin 31.2 pg (27.0-31.0); Mean Corpuscular Volume 92.4 fL (78.0-98.0); Mean Platelet Volume 7.7 fL (7.4-10.4); Monocytes 4 % (0-10); Neutrophil 63 % (42-75); PLT Morphology Comment Appears Decreased; Platelet Count 74 thou/uL (130-400); RBC Distribution Width 13.2 % (11.5-14.5); Red Blood Cell (RBC) Count 3.63 mill/uL (4.20-5.40); White Blood Cell (WBC) Count 8.9 thou/uL (4.8-10.8)
[2018-09-17] MEDS: HumaLOG 300 UNITS/3 ML VIAL SC PRN ×4 (00:30→17:11)
[2018-09-17 04:58] LABS: ALT (SGPT) 7 U/L (8-55); AST (SGOT) 6 U/L (5-34); Albumin 2.2 g/dL (3.4-4.8); Alkaline Phosphatase 28 U/L (40-150); Anion Gap 9 mmol/L (10-20); BUN (Urea Nitrogen) 22 mg/dL (9.8-20.1); Bilirubin, Total 0.5 mg/dL (0.2-1.2); Calc. Creatinine Clearance 58 mL/min (70-130); Calcium 6.4 mg/dL (7.8-10.44); Carbon Dioxide 18 mmol/L (23-31); Chloride 118 mmol/L (98-107); Estimated GFR-MDRD 62; Globulin 1.4 g/dL (2.4-3.5); Glucose 242 mg/dL (83-110); Magnesium 1.7 mg/dL (1.6-2.6); Potassium 3.6 mmol/L (3.5-5.1); Protein, Total 3.6 g/dL (6.0-8.3); Sodium 141 mmol/L (136-145)
[2018-09-17 05:03] LABS: Band 42 % (5-11); Hemoglobin 10.2 g/dL (12.0-16.0); Lymphocytes 8 % (21-51); MDiff Complete? YES; Mean Corpuscular HGB CONC 34.1 g/dL (32.0-36.0); Mean Corpuscular Hemoglobin 31.4 pg (27.0-31.0); Mean Platelet Volume 7.6 fL (7.4-10.4); Monocytes 4 % (0-10); Neutrophil 46 % (42-75); PLT Morphology Comment Appears Decreased; Platelet Count 61 thou/uL (130-400); RBC Distribution Width 13.3 % (11.5-14.5); Red Blood Cell (RBC) Count 3.26 mill/uL (4.20-5.40); White Blood Cell (WBC) Count 9.6 thou/uL (4.8-10.8)
[2018-09-17] MEDS: Piperacillin/Tazobactam 3.375 GM in Sodium Chloride 0.9% 100 ML IVPB SCH ×3 (05:08→17:33)
[2018-09-17] MEDS: Albumin 25% 25 GM/100 ML BOT IVPB SCH ×3 (05:10→17:33)
[2018-09-17 07:19] LABS: Actual Bicarbonate (HCO3a) 18.3 mEq/L (22-28); Base Excess (BEa) -7.1 mEq/L (-2.0 to +3.0); CO2 Tension 36.5 mmHg (35.0-45.0); Calcium, Ionized 0.98 mmol/L (1.12-1.30); Carboxyhemoglobin (COHb) 1.3 gm% (0.0-3.0); Hemoglobin (Hb) 9.4 g/dL (12.0-16.0); O2 Tension (PaO2) 83.3 mmHg (> 60.0); Potassium - ABG Lab 3.34 mmol/L (3.70-5.30); Puncture Site LR; pH, Arterial 7.32 (7.35-7.45)
[2018-09-17 07:20] LABS: ALV-art Gradient 134.885 (0-20)
[2018-09-17] MEDS: Pantoprazole 40 MG VIAL IVP SCH (07:31)
[2018-09-17] MEDS ORDERED: Sodium Chloride 0.9% 1,000 ML IV SCH ×2 (08:00→19:30)
[2018-09-17] MEDS ORDERED: Potassium Phosphate 20 MMOL in Sodium Chloride 0.9% 250 ML 250 ML IVPB SCH (08:00)
--- NOTE | 2018-09-17 08:27 | PRG ---
DATE OF SERVICE: 09/17/2018 SUBJECTIVE: Leigha Silva is doing well this morning. She is on the ventilator. Her eyes are open and she responds appropriately to conversation. She states that her abdominal pain is improved. OBJECTIVE: VITAL SIGNS: Temperature 98 degrees, pulse 77, and blood pressure 104/50. LUNGS: Clear to auscultation. CARDIAC: Regular rate and rhythm without murmur or gallop. ABDOMEN: Soft. Bowel sounds present. Colostomy healthy. EXTREMITIES: Unremarkable. LABORATORY DATA: The patient's urine output is 20 to 25 an hour gastric drainage, 100 mL overnight through her NG tube. Turner output 460 mL postoperatively, 20 mL the last hour. She had 1 unit of blood last night as her blood pressure was in the 90s and her hemoglobin was 9. She was given 1 unit of blood this morning. Her hemoglobin is 10.2, white count 9.6. Sodium 141, potassium 3.6, BUN 22, and creatinine 0.87. Phosphorus is low at 2.0, magnesium is 1.7. ASSESSMENT AND PLAN: 1. Sepsis, now better, improved after laparotomy, abdominal washout, colostomy. Continue IV fluid bolus for low urine output. 2. 1 unit of blood transfusion. Anemia, stable. 3. Left subclavian line in the right subclavian. Can use without restriction. Does not need to be repositioned. 4. Respiratory failure. Respiratory weaning per Pulmonary Medicine. Job ID: [id number]
[2018-09-17] MEDS ORDERED: Midazolam HCl 2 mg/2 ml Vial ONE (08:49)
--- NOTE | 2018-09-17 10:20 | OP ---
DATE OF PROCEDURE: 09/17/2018 PROCEDURE: Bronchoscopy, diagnostic therapeutic. INDICATION: Persistent left lung atelectasis. DESCRIPTION OF OPERATION: After informed consent from the son, the flexible video Olympus bronchoscope was passed using an adapter on the endotracheal tube. The distal trachea was visualized, which was normal, and into left lung, there were copious amounts of thick pus in the mainstem bronchus with marked edema of the basilar segments. This was lavaged and cleared, after the entire left lung upper lobe was visualized without any further endobronchial disease, blood, or pus pocket. Area was lavaged with normal saline. The right lung was inspected after this, and it was completely normal. No endobronchial obstruction, blood, or pus seen. The patient otherwise tolerated the procedure well. Washings had been sent for Gram stain and C and S. Job ID: [id number]
--- NOTE | 2018-09-17 10:24 | RAD ---
FRONTAL VIEW CHEST: COMPARISON: Previous day. CLINICAL HISTORY: Ventilated patient. Followup evaluation. FINDINGS: There is progressive opacity seen at the lower chest bilaterally indicating pleural fluid with adjace nt edema and/or pneumonia. There is progressive enlargement of the cardiomediastinal silhouette with vascular congestion. Left subclavian venous catheter is again demonstrated, traversing midline with tip overlying the right subclavian vein. Endotracheal and enteric catheters remain. No additional significant interval change. IMPRESSION: 1. Progressive opacities bilaterally favoring enlarging pleural fluid and progressive edema. Pneumo jose j not excluded. Recommend continued followup. 2. Stable positioning of left subclavian venous catheter which traverses midline and overlies the co ntralateral right subclavian vein. POS: SUSI
--- NOTE | 2018-09-17 10:28 | PRG ---
DATE OF SERVICE: 09/17/2018 SUBJECTIVE: She remained in the ICU intubated, in the vent, status post surgery. I discussed with Dr. Henry, the surgeon. She had diverticulitis with fluid collection, requiring surgery. X-ray today still shows some loss of volume. OBJECTIVE: VITAL SIGNS: Blood pressure 112/61, temperature QAMARKER], pulse 80 , and respiratory rate 18. CHEST: Decreased breath sounds in bilateral rhonchi. CARDIAC: Normal S1 and S2. No gallops. ABDOMEN: No masses. LABORATORY DATA: White count 9000, hemoglobin 10, hematocrit 30, and platelet count is 61, decreased. PO2 is 83, pCO2 41 ph 7.35 on37 fio2_ BUN and creatinine normal. ASSESSMENT: 1.diverticulitis_ status post lap. 2. Persistent left retrocardiac density. Will try and wean and hopefully extubate. Diagnostic bronchoscopy was performed because of abnormal chest x-ray. Continue antibiotics as per Surgery. One-half hour critical time, exclusive of the bronchoscopy. Job ID: [id number] MTDD
[2018-09-17] MEDS: Dextrose 5 %-0.45 % NaCl 1,000 ML IV SCH ×2 (11:36→21:55)
[2018-09-17] MEDS ORDERED: SODIUM ACETATE IV SCH ×2 (14:00)
[2018-09-17] MEDS ORDERED: FAT EMULSION IV SCH ×2 (14:00)
[2018-09-17] MEDS ORDERED: POTASSIUM CHLORIDE IV SCH ×2 (14:00)
[2018-09-17] MEDS ORDERED: [UNRECOGNIZED DRUG - OTHER] IV SCH ×2 (14:00)
--- NOTE | 2018-09-17 16:01 | PDOC.PN ---
- Subjective Encounter Start Date: 09/17/18 Encounter Start Time: 10:00 Ms. Silva was seen today in follow-up of perforated Diverticulitis. She is currently intubated. She will follow some commands. - Objective MAR Reviewed: Yes Vital Signs & Weight: Vital Signs (12 hours) Temp Pulse Pulse Pulse Resp BP BP 09/17/18 13:31 84 76 118/61 09/17/18 12:00 98.1 F 09/17/18 11:26 09/17/18 11:08 82 106/71 09/17/18 10:00 17 09/17/18 08:00 15 09/17/18 07:00 98.0 F 09/17/18 06:50 77 104/50 L 09/17/18 06:00 14 09/17/18 04:00 98.8 F 16 BP Pulse Ox Pulse Ox Pulse Ox 09/17/18 13:31 102/55 L 100 100 09/17/18 12:00 09/17/18 11:26 99 09/17/18 11:08 09/17/18 10:00 09/17/18 08:00 100 09/17/18 07:00 09/17/18 06:50 09/17/18 06:00 09/17/18 04:00 Weight Admit Weight 170 lb Weight 170 lb Most Recent Monitor Data Heart Rate from ECG 85 NIBP 125/62 NIBP BP-Mean 83 Respiration from ECG 32 SpO2 100 I&O: 09/16/18 09/17/18 09/18/18 06:59 06:59 06:59 Intake Total 4846 355 Output Total 1010 120 Balance 3836 235 Result Diagrams: 09/17/18 04:32 09/17/18 03:30 Additional Labs: Accuchecks 09/17/18 09/17/18 12:12 00:23 POC Glucose 199 H 199 H Phys Exam - Physical Examination HEENT: PERRLA Respiratory: no wheezing, no rales, no rhonchi Cardiovascular: RRR, no significant murmur, no rub Gastrointestinal: soft, no distention, positive bowel sounds Musculoskeletal: edema present (trace pedal edema) trace pedal edema Neurological: non-focal, normal sensation Dx/Plan (1) Sigmoid diverticulitis Code(s): K57.32 - DVTRCLI OF LG INT W/O PERFORATION OR ABSCESS W/O BLEEDING Status: Acute Comment: with perforation.Conservative Managment .on IV ABx (2) Pleural effusion Code(s): J90 - PLEURAL EFFUSION, NOT ELSEWHERE CLASSIFIED Status: Acute Comment: S/P thoracentesis. exudative in nature. Pathology and microbiology pending (3) DM2 (diabetes mellitus, type 2) Status: Chronic (4) HTN (hypertension) Code(s): I10 - ESSENTIAL (PRIMARY) HYPERTENSION Status: Chronic - Plan * Sigmoid diverticulitis with abscess- she is s/p laparotomy, and sigmoid colon resection. Continue Zosyn * Pleural effusion- Patient underwent bronoscopy- pathology from washings are pending * Plan is for extubation today. * HTN- blood pressure is stable
[2018-09-17] MEDS ORDERED: Morphine 4 MG/ML VIAL SLOW IVP PRN ×2 (20:22)
[2018-09-17] MEDS ORDERED: Ketorolac Tromethamine 30 MG/ML VIAL IVP PRN (20:22)
[2018-09-17] MEDS: Enoxaparin Sodium 30 MG/0.3 ML SYRINGE SC SCH (20:40)
[2018-09-18] MEDS: Acetaminophen 1,000 MG in Premix Bag 1 BAG IVPB SCH ×4 (00:36→18:14)
[2018-09-18] MEDS: Piperacillin/Tazobactam 3.375 GM in Sodium Chloride 0.9% 100 ML IVPB SCH ×4 (00:36→18:14)
[2018-09-18] MEDS: HumaLOG 300 UNITS/3 ML VIAL SC PRN ×4 (01:33→18:42)
[2018-09-18 04:42] LABS: #Basophils 0.2 thou/uL (0.0-0.2); #Lymphocytes 0.2 thou/uL (1.20-3.40); #Monocytes 0.2 thou/uL (0.11-0.59); #Neutrophils 15.2 thou/uL (1.40-6.50); %Basophils 1.5 % (0.0-1.0); %Eosinophils 0.3 % (0.0-10.0); %Lymphocytes 1.3 % (21.0-51.0); %Monocytes 1.5 % (0.0-10.0); %Neutrophils 95.5 % (42.0-75.0); Hemoglobin 9.7 g/dL (12.0-16.0); Mean Corpuscular HGB CONC 33.4 g/dL (32.0-36.0); Mean Corpuscular Hemoglobin 31.1 pg (27.0-31.0); Mean Corpuscular Volume 93.1 fL (78.0-98.0); Mean Platelet Volume 7.7 fL (7.4-10.4); Platelet Count 53 thou/uL (130-400); RBC Distribution Width 13.5 % (11.5-14.5); Red Blood Cell (RBC) Count 3.11 mill/uL (4.20-5.40)
[2018-09-18 05:04] LABS: ALT (SGPT) Less than 7 U/L (8-55); AST (SGOT) 8 U/L (5-34); Albumin 2.7 g/dL (3.4-4.8); Alkaline Phosphatase 33 U/L (40-150); Anion Gap 7 mmol/L (10-20); BUN (Urea Nitrogen) 24 mg/dL (9.8-20.1); Bilirubin, Total 0.5 mg/dL (0.2-1.2); Calc. Creatinine Clearance 41 mL/min (70-130); Calcium 6.1 mg/dL (7.8-10.44); Carbon Dioxide 19 mmol/L (23-31); Chloride 118 mmol/L (98-107); Estimated GFR-MDRD 42; Globulin 1.4 g/dL (2.4-3.5); Glucose 229 mg/dL (83-110); Potassium 3.4 mmol/L (3.5-5.1); Protein, Total 4.1 g/dL (6.0-8.3); Sodium 141 mmol/L (136-145)
[2018-09-18] MEDS: Dextrose 5 %-0.45 % NaCl 1,000 ML IV SCH ×3 (05:24→18:14)
[2018-09-18] MEDS ORDERED: Furosemide 40 MG/4 ML VIAL SLOW IVP SCH (08:30)
--- NOTE | 2018-09-18 08:33 | PRG ---
DATE OF SERVICE: 09/18/2018 SUBJECTIVE: Leigha Silva was given several liters of fluid yesterday for low urine output. OBJECTIVE: VITAL SIGNS: Blood pressure is 129/85, sats are 100%, respirations are 20, pulse 80. I's and O's have been 690 in and 400 out. CHEST: With extensive rhonchi and crackles. CARDIAC: Normal S1 and S2. No gallop. ABDOMEN: Soft. LABORATORY DATA: Platelet count of 53,000. BUN and creatinine of 24 and 1.2. IMAGING STUDIES: X-ray now shows diffuse pulmonary infiltrates, worse compared to several days before. All bronch washings are negative. IMPRESSION: 1. Left pleural effusion, still awaiting cytology. 2. Status post lap for perforated sigmoid diverticulitis. 3. Renal failure. 4. Advanced age and severe deconditioning. PLAN: 1. Lasix has been initiated. 2. Continue neb treatments. 3. Continue low-dose steroids. Supportive care. 4. We will follow. One half hour critical time. Job ID: [id number]
[2018-09-18 08:38] LABS: Phosphorus 2.2 mg/dL (2.3-4.7)
--- NOTE | 2018-09-18 09:34 | RAD ---
PORTABLE AP CHEST X-RAY: 09/18/2018 HISTORY: On ventilator. Follow-up evaluation. COMPARISON: 09/17/2018 FINDINGS: Left subclavian central venous catheter is again noted in place, which, again, crosses in the midline , with the tip overlying the right lung apex. The nasogastric tube is stable in position. This exam is obtained in a shallow depth of inspiration, which accentuates the bronchovascular markings, but t here is an increase in perihilar interstitial and alveolar opacities, with increased alveolar opacity at the right lung base. There is a small to moderate sized left pleural effusion, which does extend along the left lateral chest. Volume loss is present on the left. The cardiac silhouette is magnif ied by projection. The thoracic aorta is tortuous and ectatic and also magnified by the portable [place] and depth of inspiration. No other interval change. IMPRESSION: 1. Large left pleural effusion and associated atelectasis. 2. Right perihilar interstitial and alveolar opacities, more prominent than on the prior study, whic h may be related to either asymmetric pulmonary edema or an infectious process. Continued followup t o resolution is recommended. 3. Stable positioning of left subclavian central venous catheter, which crosses the midline and over lies the right lung apex. POS: MARK
[2018-09-18] MEDS: Pantoprazole 40 MG VIAL IVP SCH (09:36)
--- NOTE | 2018-09-18 10:40 | PDOC.PN ---
- Subjective Encounter Start Date: 09/18/18 Encounter Start Time: 10:38 Ms. Silva was seen today in follow-up of Sigmoid diverticulitis, with abscess, and respiratory failure. She was extubated yesterday. She appears very fatigued. She says she is not in pain. - Objective MAR Reviewed: Yes Vital Signs & Weight: Vital Signs (12 hours) Temp Pulse Ox 09/18/18 08:00 96.5 F L 100 09/18/18 00:00 97.4 F L Weight Admit Weight 170 lb Weight 170 lb Most Recent Monitor Data Heart Rate from ECG 71 NIBP 157/91 NIBP BP-Mean 113 Respiration from ECG 31 SpO2 93 I&O: 09/17/18 09/18/18 09/19/18 06:59 06:59 06:59 Intake Total 4846 6469.7 Output Total 1010 400 35 Balance 3836 6069.7 -35 Result Diagrams: 09/18/18 04:37 09/18/18 04:37 Additional Labs: Accuchecks 09/18/18 09/18/18 09/17/18 05:44 01:31 17:11 POC Glucose 389 H 283 H 184 H 09/17/18 09/16/18 12:12 13:26 POC Glucose 199 H 157 H Phys Exam - Physical Examination HEENT: PERRLA Respiratory: no wheezing, no rales decreased breath sounds at both bases, + rhonchi Cardiovascular: no significant murmur, no rub Gastrointestinal: soft, non-tender, positive bowel sounds + mild distention Musculoskeletal: pulses present, edema present + 2+ pitting edema in both upper and lower extremities Dx/Plan (1) Sigmoid diverticulitis Code(s): K57.32 - DVTRCLI OF LG INT W/O PERFORATION OR ABSCESS W/O BLEEDING Status: Acute Comment: with perforation.Conservative Managment .on IV ABx (2) Pleural effusion Code(s): J90 - PLEURAL EFFUSION, NOT ELSEWHERE CLASSIFIED Status: Acute Comment: S/P thoracentesis. exudative in nature. Pathology and microbiology pending (3) DM2 (diabetes mellitus, type 2) Status: Chronic (4) HTN (hypertension) Code(s): I10 - ESSENTIAL (PRIMARY) HYPERTENSION Status: Chronic - Plan * Sigmoid diverticulitis with abscess, s/p sigmoid colon resection- continue Zosyn * Acute respiratory failure- she has a large left pleural effusion, and possible infiltrate on the right- continue Zosyn, and Steroids were added yesterday. Await results of bronchial washings * DM- blood glucose is elevated- likely from steroids, and TPN- will add some basal SQ insulin * HTN- blood pressure is stable * Agree with PT/OT .
[2018-09-18] MEDS ORDERED: SODIUM ACETATE IV SCH (14:00)
[2018-09-18] MEDS ORDERED: FAT EMULSION IV SCH (14:00)
[2018-09-18] MEDS ORDERED: [UNRECOGNIZED DRUG - OTHER] IV SCH (14:00)
[2018-09-18] MEDS ORDERED: POTASSIUM CHLORIDE IV SCH (14:00)
--- NOTE | 2018-09-18 20:36 | CT ---
NONCONTRAST HEAD CT: 09/18/18 HISTORY: Left upper extremity weakness. Confusion. COMPARISON: None. FINDINGS: No parenchymal hemorrhage. No extra-axial hematoma. No midline shift. Basilar cisterns are patent. Ag e appropriate atrophy. There appears to be loss of cortical carlton-white matter differentiation and decreased effacement of th e sulci involving the posterior right temporal lobe as well as the right occipital lobe. White matter hypodensities chronic small vessel ischemic change. Indeterminate infarct involving the left thalamus. Calvarium is intact. Adequate aeration of the sinuses and mastoid air cells. Cavernous carotid athero sclerosis. IMPRESSION: Acute infarct involving the right occipital lobe and posterior right temporal lobe. Results of the st udy discussed with Shahana, patient's nurse, 09/18/18 at 8:23 p.m. Code CR POS: MARK
[2018-09-18] MEDS ORDERED: Atorvastatin Calcium 40 MG TAB PER TUBE SCH (21:15)
[2018-09-18] MEDS ORDERED: Aspirin 300 MG Suppository PR SCH (21:15)
[2018-09-18] MEDS: Enoxaparin Sodium 30 MG/0.3 ML SYRINGE SC SCH (21:34)
[2018-09-18] MEDS: Insulin Glargine 10 UNITS in Pre-Filled Syringe 1 EACH SC SCH (21:41)
--- NOTE | 2018-09-18 23:05 | PDOC.GSPN ---
Surgery Progress Note: Subj - Subjective Narrative: I saw the patient this morning on rounds and at that point she was doing well. Her NG output was minimal, and she had already had some stool through her colostomy. She denied any nausea so the plan was to clamp and remove her NG and get her up and moving with physical therapy. This evening however just after change of shift she was noticed to have decrease in her level of alertness and some left sided neglect and weakness. A CT scan of the head showed no acute infarction and her Lovenox and aspirin were restarted. Assessment/plan: Status post Abad's procedure for diverticulitis doing well from this standpoint for surgery but now with a new stroke. Unfortunately due to her recent surgery she is not a candidate for TPA, but we have restarted her Lovenox and aspirin. I discussed the new development with the patient's son over the phone as soon as the CT report came back. The patient's daughter is also aware. We will continue to observe closely in the ICU Surgery Progress Note: Obj - Vital signs Vital signs: Vital Signs - Most Recent Temp Pulse Resp BP Pulse Ox 96.7 F L 69 27 H 118/61 99 09/18/18 20:00 09/18/18 18:53 09/18/18 18:53 09/17/18 13:31 09/18/18 18:53 Surgery Progress Note: Results - Labs Result Diagrams: 09/18/18 04:37 09/18/18 04:37 Lab results: Laboratory Results - last 24 hr 09/18/18 09/18/18 12:31 18:32 POC Glucose 260 H 261 H
[2018-09-19] MEDS: Piperacillin/Tazobactam 3.375 GM in Sodium Chloride 0.9% 100 ML IVPB SCH ×4 (00:30→18:00)
[2018-09-19] MEDS: Acetaminophen 1,000 MG in Premix Bag 1 BAG IVPB SCH ×4 (00:30→18:00)
[2018-09-19] MEDS: Dextrose 5 %-0.45 % NaCl 1,000 ML IV SCH ×2 (01:06→05:53)
[2018-09-19] MEDS: HumaLOG 300 UNITS/3 ML VIAL SC PRN ×3 (01:26→10:19)
[2018-09-19 05:34] LABS: ALT (SGPT) 8 U/L (8-55); AST (SGOT) 11 U/L (5-34); Albumin 2.6 g/dL (3.4-4.8); Alkaline Phosphatase 58 U/L (40-150); Anion Gap 11 mmol/L (10-20); BUN (Urea Nitrogen) 38 mg/dL (9.8-20.1); Bilirubin, Total 0.4 mg/dL (0.2-1.2); Calc. Creatinine Clearance 33 mL/min (70-130); Calcium 6.5 mg/dL (7.8-10.44); Carbon Dioxide 14 mmol/L (23-31); Chloride 115 mmol/L (98-107); Estimated GFR-MDRD 33; Globulin 1.8 g/dL (2.4-3.5); Glucose 302 mg/dL (83-110); Potassium 3.6 mmol/L (3.5-5.1); Protein, Total 4.4 g/dL (6.0-8.3); Sodium 136 mmol/L (136-145)
[2018-09-19 05:47] LABS: Band 20 % (5-11); Crenated RBC SLIGHT = 1-5 cells (100X) (None Seen); Eosinophils 1 % (0-10); Hemoglobin 10.7 g/dL (12.0-16.0); Hypochromia SLIGHT = 6-15 cells (100X) (0-5/hpf); Lymphocytes 2 % (21-51); MDiff Complete? YES; Mean Corpuscular HGB CONC 32.9 g/dL (32.0-36.0); Mean Corpuscular Hemoglobin 30.8 pg (27.0-31.0); Mean Corpuscular Volume 93.7 fL (78.0-98.0); Mean Platelet Volume 8.5 fL (7.4-10.4); Monocytes 1 % (0-10); Neutrophil 76 % (42-75); PLT Morphology Comment Appears Decreased; Platelet Count 67 thou/uL (130-400); RBC Distribution Width 13.7 % (11.5-14.5); Red Blood Cell (RBC) Count 3.48 mill/uL (4.20-5.40); White Blood Cell (WBC) Count 26.8 thou/uL (4.8-10.8)
[2018-09-19 08:50] LABS: Phosphorus 1.7 mg/dL (2.3-4.7)
[2018-09-19] MEDS ORDERED: Aspirin 300 MG Suppository PR SCH (09:00)
[2018-09-19] MEDS: Pantoprazole 40 MG VIAL IVP SCH (09:58)
[2018-09-19] MEDS: Insulin Glargine 10 UNITS in Pre-Filled Syringe 1 EACH SC SCH ×2 (09:58→21:46)
--- NOTE | 2018-09-19 10:01 | PRG ---
DATE OF SERVICE: 09/19/2018 SERVICE: Pulmonary Medicine. INTERVAL HISTORY: The patient had an abrupt change in mentation last night. She started having difficulty with vision. She also had some other difficulties. Ultimately, she was sent down for a CT of the head, which confirmed an acute CVA. She denies any current shortness of breath or chest discomfort. She has no cough. There has been no sputum production. Otherwise, there has been no significant interval change. She remains weak from head to toe. PHYSICAL EXAMINATION: VITAL SIGNS: Afebrile. Pulse 66, blood pressure 101/49, respirations 24, saturation 97% on 2 L nasal cannula. GENERAL: The patient is awake and alert, in no apparent distress. LUNGS: Excellent air entry. No prolonged expiratory phase or wheezing is appreciated. HEART: Normal rate, regular. ABDOMEN: Soft, nontender, and nondistended. Bowel sounds are positive. MUSCULOSKELETAL: No cyanosis or clubbing. There is 2+ pitting in the bilateral lower extremities. NEUROLOGICAL: Grossly nonfocal. LABORATORY DATA: WBC 26.8, hemoglobin 10.7, platelets 76,000. Creatinine 1.5 and up-trending significantly. BUN 38. Bicarb 14, potassium 3.6. Liver function studies are unremarkable. Phosphorus is 1.7. Cytology from the pleural fluid was unremarkable. Presumptive Ngozi albicans is growing out of the respiratory cultures from the . AFB and body fluid cultures from the thoracentesis are negative to date. IMAGING: CT of the brain demonstrates an acute infarction in the right occipital and posterior temporal lobes. ASSESSMENT: 1. Pleural effusion, status post thoracentesis, lymphocytic exudate. 2. Diverticulitis, status post surgical intervention with colostomy formation, postoperative day 3. 3. Cerebrovascular accident, acute. 4. 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 5. Non-anion gap metabolic acidosis. 6. Acute kidney injury. DISCUSSION AND PLAN: I will back off the IV fluids. We will try to keep her even over the next 24 to 48 hours, as the patient is significantly volume up over the last 3 days. Will discontinue all IV fluids. Pulmonary/Critical Care will continue to follow along, but she will need to remain in the ICU for the time being. I will add micafungin, as she has a significant bump in white blood cell count and was growing significant Ngozi from her lungs. Pulmonary/Critical Care will continue to follow along for now. Job ID: [id number]
[2018-09-19] MEDS ORDERED: Sodium Phosphate 15 MMOL in Sodium Chloride 0.9% 250 ML 250 ML IVPB SCH ×2 (10:30→11:00)
[2018-09-19] MEDS: Micafungin 100 MG in Sodium Chloride 0.9% 100 ML IVPB SCH (11:11)
[2018-09-19] MEDS: Sodium Bicarbonate 150 MEQ in Dextrose 5% in Water 1,000 ML IV SCH (11:12)
[2018-09-19] MEDS ORDERED: Potassium Phosphate 15 MMOL in Sodium Chloride 0.9% 250 ML 250 ML IV SCH (11:15)
[2018-09-19] MEDS ORDERED: Midazolam HCl 2 mg/2 ml Vial ONE (11:15)
[2018-09-19] MEDS ORDERED: Propofol 1,000 MG/100 ML VIAL IV ONE (11:16)
[2018-09-19] MEDS ORDERED: PROPOFOL 20 ML ONE (11:16)
[2018-09-19] MEDS ORDERED: Norepinephrine 8 MG/0.9% NS 250 ML IVPB PRN (11:18)
[2018-09-19] MEDS ORDERED: Ventilator Sedation Protocol 1 EACH FS SCH (11:30)
[2018-09-19] MEDS ORDERED: Norepinephrine 8 MG/0.9% NS 250 ML ONE (11:34)
--- NOTE | 2018-09-19 11:35 | RAD ---
CHEST 1 VIEW: HISTORY: Dyspnea. Followup. COMPARISON: 09/18/2018. FINDINGS: Cardiac silhouette is magnified and predominantly obscured by a large amount of bilateral pleural flu id and dense bibasilar infiltrates. Pulmonary vasculature remains markedly engorged. The patient is rotated leftward. Lines and tubes are unchanged in position with left subclavian central venous cat heter crossing midline to the right subclavian vessels. No evidence of pneumothorax. IMPRESSION: Pulmonary edema, large left pleural effusion, and other findings are stable. POS: MARK
[2018-09-19] MEDS ORDERED: Sodium Bicarb 50 MEQ/50 ML VIAL ONE ×2 (11:37→11:38)
[2018-09-19] MEDS ORDERED: DISCONTINUE PREVIOUS NARCOTIC PAIN MEDICATIONS AND BENZODIAZEPINES FS SCH (12:06)
[2018-09-19] MEDS ORDERED: Lorazepam 2 MG/ML VIAL SLOW IVP PRN (12:06)
[2018-09-19] MEDS ORDERED: Propofol BOLUS 1,000 MG/100 ML VIAL IV PRN (12:06)
[2018-09-19] MEDS ORDERED: Fentanyl BOLUS 250 ML IVPB PRN (12:06)
[2018-09-19] MEDS ORDERED: Propofol 1,000 MG/100 ML VIAL IV PRN (12:06)
[2018-09-19] MEDS ORDERED: Morphine 2 MG/ML SYRINGE SLOW IVP PRN (12:06)
[2018-09-19 12:17] LABS: Anion Gap 13 mmol/L (10-20); BUN (Urea Nitrogen) 41 mg/dL (9.8-20.1); Calc. Creatinine Clearance 37 mL/min (70-130); Carbon Dioxide 29 mmol/L (23-31); Chloride 116 mmol/L (98-107); Estimated GFR-MDRD 37; Glucose 274 mg/dL (83-110); Potassium 3.8 mmol/L (3.5-5.1); Sodium 154 mmol/L (136-145)
[2018-09-19 12:21] LABS: Magnesium 1.5 mg/dL (1.6-2.6)
[2018-09-19 12:23] LABS: Lactic Acid 2.6 mmol/L (0.5-2.2)
[2018-09-19 12:26] LABS: Calcium 5.9 mg/dL (7.8-10.44)
[2018-09-19 12:35] LABS: Phosphorus 1.4 mg/dL (2.3-4.7)
--- NOTE | 2018-09-19 12:57 | PDOC.PN ---
- Subjective Encounter Start Date: 09/19/18 Encounter Start Time: 12:55 Subjective: seen and examined at bedside. care discussed w family. -: feels poorly.New stroke on CT.extubated -: somnolent - Objective MAR Reviewed: Yes Vital Signs & Weight: Vital Signs (12 hours) Temp Pulse Pulse Resp BP BP Pulse Ox 09/19/18 12:46 80 110/66 09/19/18 10:40 80 20 09/19/18 09:19 66 100/50 L 97 09/19/18 04:00 97.3 F L Weight Admit Weight 170 lb Weight 170 lb Most Recent Monitor Data Heart Rate from ECG 67 NIBP 126/59 NIBP BP-Mean 81 Respiration from ECG 15 SpO2 97 I&O: 09/18/18 09/19/18 09/20/18 06:59 06:59 06:59 Intake Total 6469.7 4320 Output Total 400 922 20 Balance 6069.7 3398 -20 Result Diagrams: 09/19/18 04:45 09/19/18 11:55 Additional Labs: Accuchecks 09/19/18 09/19/18 09/19/18 10:13 06:15 01:26 POC Glucose 334 H 304 H 347 H 09/18/18 18:32 POC Glucose 261 H Microbiology 09/17/18 09:25 Pre Bronchial washings Respiratory Culture - Final Presumptive Ngozi albicans 09/11/18 Unknown Pleural fluid Body Fluid Culture - Final 09/11/18 Unknown Pleural fluid Acid Fast Bacilli Smear - Final 09/17/18 09:25 Pre Bronchial washings Respiratory Culture - Preliminary Presumptive Ngozi albicans Laboratory Tests 09/12/18 09/13/18 09/13/18 05:37 05:44 05:44 WBC Band Neuts % (Manual) 41 H 48 H Creatinine 1.30 H 09/14/18 09/14/18 09/15/18 05:40 06:42 04:24 WBC 9.3 12.5 H Band Neuts % (Manual) 24 H Creatinine 1.04 09/15/18 09/16/18 09/16/18 04:25 06:15 16:15 WBC Band Neuts % (Manual) Creatinine 1.01 1.00 0.85 09/16/18 09/16/18 09/17/18 16:15 23:02 03:30 WBC 5.4 8.9 Band Neuts % (Manual) 10 30 H Creatinine 0.87 09/17/18 09/18/18 09/18/18 04:32 04:37 04:37 WBC 9.6 16.0 H Band Neuts % (Manual) 42 H Creatinine 1.21 H 09/19/18 09/19/18 04:45 04:45 WBC 26.8 H Band Neuts % (Manual) 20 H Creatinine 1.50 H Phys Exam - Physical Examination pale,ill looking,uncomfortable HEENT: PERRLA, sclera anicteric dry mucosa Neck: no nodes, no JVD Respiratory: no wheezing, no rales, no rhonchi difficult to ausculate due to positioning,reduced at bases Cardiovascular: RRR Gastrointestinal: soft, non-tender, no distention, positive bowel sounds soft liquid stools in ostomy bag Musculoskeletal: pulses present, edema present (hands ) left hemiparesis,altered mental status Skin: no rash Dx/Plan (1) Acute CVA (cerebrovascular accident) Code(s): I63.9 - CEREBRAL INFARCTION, UNSPECIFIED Status: Acute Comment: on ASA,statin (2) Sigmoid diverticulitis Code(s): K57.32 - DVTRCLI OF LG INT W/O PERFORATION OR ABSCESS W/O BLEEDING Status: Acute Comment: with perforation.s/p sigmoid colectomy and colostomy .extubated and in CCU (3) Pleural effusion Code(s): J90 - PLEURAL EFFUSION, NOT ELSEWHERE CLASSIFIED Status: Acute Comment: S/P thoracentesis. exudative in nature. Pathology and microbiology pending (4) DM2 (diabetes mellitus, type 2) Status: Chronic (5) HTN (hypertension) Code(s): I10 - ESSENTIAL (PRIMARY) HYPERTENSION Status: Chronic (6) CKD (chronic kidney disease) stage 3, GFR 30-59 ml/min Code(s): N18.3 - CHRONIC KIDNEY DISEASE, STAGE 3 (MODERATE) Status: Chronic Comment: s/p R nephrectomy 15 yrs ago (7) Chronic diastolic CHF (congestive heart failure), NYHA class 2 Code(s): I50.32 - CHRONIC DIASTOLIC (CONGESTIVE) HEART FAILURE Status: Chronic - Plan continue antibiotics, respiratory therapy, incentive spirometry, DVT proph w/ lovenox, DVT proph w/SCDs Remains critically ill.Neurology consulted.poor prognosis.cont ASA/statin -: will need antifungal given ngozi in bronch washing. -: Cr stable w H/O CKD.will recommend less IVF given edema & Pleural effusion -: WBC worsened but bands less today.also on steroid.? d/t new infection -: on zosyn for intra abdominal infection.Cont post-op care. On TPN * .monitor lytes on TPN. * DC TORADOL given the fact that pt only has one kidney. * IM team will follow but prognosis seems poor w multiple co morbidities and advanced age Review of Systems - Review of Systems Other: can not be reliably obtained due to somnolence - Medications/Allergies Allergies/Adverse Reactions: Allergies Allergy/AdvReac Type Severity Reaction Status Date / Time No Known Allergies Allergy Unverified 09/11/18 13:24 Medications: Current Medications Albuterol/Ipratropium (Duoneb) 3 ml NEB K1BU-DS PRN PRN Reason: SOB &/or Wheezing Albuterol/Ipratropium (Duoneb) 3 ml NEB [id number] [facility] Last Admin: 09/19/18 10:40 Dose: 3 ml Aspirin (Aspirin Chewable) 81 mg PER TUBE DAILY [facility] Last Admin: 09/19/18 09:57 Dose: 81 mg Atorvastatin Calcium (Lipitor) 80 mg PER TUBE HS [facility] Calcium Gluconate (Calcium Gluconate) 4.6 meq SLOW IVP Q4HR [facility] Stop: 09/19/18 17:01 Enoxaparin Sodium (Lovenox) 30 mg SC 2100 [facility] Last Admin: 09/18/18 21:34 Dose: 30 mg Famotidine (Pepcid) 20 mg SLOW IVP DAILY [facility] Furosemide (Lasix) 40 mg SLOW IVP 1600 [facility] Stop: 09/19/18 18:00 Glucagon (Glucagon) 1 mg IM PRN PRN PRN Reason: Hypoglycemia Hydralazine HCl (Apresoline) 10 mg SLOW IVP Q4H PRN PRN Reason: SBP > 170 or DBP > 100 Dextrose/Water (D5w) 1,000 mls @ 0 mls/hr IV .Q0M PRN PRN Reason: Hypoglycemia Piperacillin Sod/Tazobactam (Sod 3.375 gm/ Sodium Chloride) 100 mls @ 200 mls/ hr IVPB Q6HR [facility] Last Admin: 09/19/18 05:52 Dose: 100 mls Acetaminophen 1,000 mg/ Device 100 mls @ 400 mls/hr IVPB Q6HR [facility] Stop: 09/20/18 23:59 Last Admin: 09/19/18 05:46 Dose: 100 mls Acetaminophen 1,000 mg/ Device 100 mls @ 400 mls/hr IVPB Q6H PRN PRN Reason: Fever/Mild Pain Stop: 09/22/18 20:23 Insulin Glargine 10 units/ (Miscellaneous Medication) 0.1 mls @ 0 mls/hr SC HS [facility] Last Admin: 09/18/18 21:41 Dose: 0.1 mls Insulin Glargine 10 units/ (Miscellaneous Medication) 0.1 mls @ 0 mls/hr SC QAM [facility] Last Admin: 09/19/18 09:58 Dose: 0.1 mls Sodium Bicarbonate 150 meq/ (Dextrose/Water) 1,150 mls @ 0 mls/hr IV .Q0M [facility] Last Admin: 09/19/18 11:12 Dose: 1,150 mls Micafungin Sodium 100 mg/ (Sodium Chloride) 100 mls @ 100 mls/hr IVPB 1100 [facility] Last Admin: 09/19/18 11:11 Dose: 100 mls Potassium Phosphate 15 mmol/ (Sodium Chloride) 255 mls @ 63.75 mls/hr IV NOW [facility] Stop: 09/19/18 15:14 Norepinephrine Bitartrate (Levophed) 250 mls @ 0 mls/hr IVPB PRN PRN; Protocol PRN Reason: To maintain MAP > 65 Fentanyl Citrate 2,000 mcg/ (Sodium Chloride) 100 mls @ 0 mls/hr IV INF [facility]; Protocol Stop: 10/19/18 12:06 Fentanyl Citrate (Fentanyl Bolus) 250 mls @ 0 mls/hr IVPB PRN PRN PRN Reason: Breakthrough pain/agitation Stop: 10/19/18 12:06 Magnesium Sulfate 4 gm/ Sodium (Chloride) 258 mls @ 86 mls/hr IVPB NOW [facility] Stop: 09/19/18 15:59 Insulin Human Lispro (Humalog) 0 units SC .MODERATE SLIDING SC PRN PRN Reason: Moderate Correctional Scale Last Admin: 09/19/18 10:19 Dose: 8 unit Lorazepam (Ativan) 2 mg SLOW IVP Q1H PRN PRN Reason: Breakthrough agitation Stop: 10/19/18 12:06 Methylprednisolone Sodium Succinate (Solu-Medrol) 40 mg IVP DAILY [facility] Morphine Sulfate (Morphine) 2 mg SLOW IVP Q1H PRN PRN Reason: BREAKTHROUGH PAIN/Agitation Stop: 10/16/18 15:55 Morphine Sulfate (Morphine) 2 mg SLOW IVP Q1H PRN PRN Reason: BREAKTHROUGH PAIN/Agitation Stop: 10/19/18 12:06 Discontinue Previous Narcotic Pain Medications And Benzodiazepines 1 each FS .ONE [facility] Stop: 10/16/18 15:55 Discontinue Previous Narcotic Pain Medications And Benzodiazepines 1 each FS .ONE [facility] Stop: 10/19/18 12:06 Ondansetron HCl (Zofran) 4 mg IVP Q4H PRN PRN Reason: Nausea/Vomiting Last Admin: 09/16/18 06:14 Dose: 4 mg Pantoprazole Sodium (Protonix) 40 mg IVP DAILY [facility] Last Admin: 09/19/18 09:58 Dose: 40 mg Propofol (Diprivan) 1,000 mg IV INF PRN; Protocol PRN Reason: TO ACHIEVE GOAL RASS Stop: 10/19/18 12:06 Propofol (Diprivan Bolus) 20 mg IV Q5MIN PRN PRN Reason: BREAKTHROUGH AGITATION Stop: 10/19/18 12:06 Sodium Chloride (Flush - Normal Saline) 10 ml IVF PRN PRN PRN Reason: Saline Flush Last Admin: 09/17/18 07:31 Dose: 10 ml
[2018-09-19] MEDS ORDERED: Magnesium Sulfate 4 GM in Sodium Chloride 0.9% 250 ML 250 ML IVPB SCH (13:00)
[2018-09-19 13:02] LABS: Actual Bicarbonate (HCO3a) 15.5 mEq/L (22-28); Base Excess (BEa) -13.6 mEq/L (-2.0 to +3.0); CO2 Tension 49.9 mmHg (35.0-45.0); Calcium, Ionized 1.01 mmol/L (1.12-1.30); Carboxyhemoglobin (COHb) 0.9 gm% (0.0-3.0); Hemoglobin (Hb) 10.8 g/dL (12.0-16.0); O2 Tension (PaO2) 72.5 mmHg (> 60.0); Potassium - ABG Lab 3.61 mmol/L (3.70-5.30); pH, Arterial 7.11 (7.35-7.45)
[2018-09-19 13:03] LABS: ALV-art Gradient 64.765 (0-20); Puncture Site RRA
[2018-09-19 13:06] LABS: Actual Bicarbonate (HCO3a) 11.2 mEq/L (22-28); Base Excess (BEa) -15.6 mEq/L (-2.0 to +3.0); Hemoglobin (Hb) 6.1 g/dL (12.0-16.0); Potassium - ABG Lab 2.02 mmol/L (3.70-5.30); Puncture Site RRA; pH, Arterial 7.19 (7.35-7.45)
[2018-09-19] MEDS ORDERED: EPINEPHrine 1 MG/10 ML Abboject SYRINGE ONE (13:16)
[2018-09-19] MEDS ORDERED: Calcium Chloride 1 GM/10 ML Abboject SYRINGE ONE (13:16)
[2018-09-19] MEDS ORDERED: Sodium Bicarb 50 MEQ/50 ML Abboject 8.4% SYRINGE ONE (13:16)
--- NOTE | 2018-09-19 13:57 | RAD ---
PORTABLE AP CHEST XRAY: DATE: 09/19/2018. HISTORY: On ventilator. Followup evaluation. COMPARISON: 09/19/2018 at 0451 hours. FINDINGS: There has been interval placement of an endotracheal tube with the tip overlying the T4 vertebral bod y and above the level of the jasmin. Nasogastric tube and left subclavian central venous catheter re main in place. The left subclavian central venous catheter again courses across the midline with tip overlying the right lung apex. There are bilateral pleural effusions and associated atelectasis lar dinorah in size on the left. This obscures the left cardiac border, but the cardiac silhouette is probab ly enlarged. Pulmonary vasculature is mildly increased. No other interval change. IMPRESSION: 1. Interval placement of an endotracheal tube which is above the level of the jasmin. 2. Bilateral pleural effusions and atelectasis larger on the left. 3. Pulmonary vascular congestion. POS: [facility]
[2018-09-19] MEDS ORDERED: FAT EMULSION IV SCH (14:00)
[2018-09-19] MEDS ORDERED: [UNRECOGNIZED DRUG - OTHER] IV SCH (14:00)
[2018-09-19] MEDS ORDERED: SODIUM ACETATE IV SCH (14:00)
[2018-09-19] MEDS ORDERED: POTASSIUM CHLORIDE IV SCH (14:00)
[2018-09-19] MEDS: Calcium Gluc 4.6 MEQ/10 ML (100 MG/ML) SLOW IVP SCH ×2 (14:05→17:50)
--- NOTE | 2018-09-19 14:11 | CON ---
DATE OF CONSULTATION: REASON FOR CONSULTATION: Recent Code Blue. HISTORY: Ms. Silva is an 83-year-old woman who recently was admitted on 09/11/[address] Camilo Henry. She was admitted for diverticulitis with diverticular abscess. She was treated with antibiotic therapy and treated conservatively. She has been seen and evaluated by Dr. Cipriano Zavala in the past. She, therefore, failed conservative treatment and underwent surgery on 09/16/2018. She had a laparotomy with sigmoid colon resection. She continued to have increased respiratory distress today. She was intubated. Shortly thereafter, she developed PEA after bradycardia. Code was called. This ensued for several minutes. She developed atrial fibrillation with RVR after resuscitation. She was also found to be profoundly acidotic with pH of 7.1. During my assessment, the patient was intubated and sedated. Heart rate appeared stable on IV amiodarone therapy. PAST MEDICAL HISTORY: Renal cell cancer status post nephrectomy, diabetes mellitus, diastolic heart failure, appendectomy, cholecystectomy, hysterectomy, right breast biopsy, and shoulder surgery. MEDICATIONS: 1. Potassium. 2. Cozaar. 3. Amaryl. 4. Lasix. 5. Lipitor. 6. Clonidine. 7. Hydralazine. 8. Coreg. ALLERGIES: NONE. SOCIAL HISTORY: No current tobacco or alcohol use. REVIEW OF SYSTEMS: Unobtainable. PHYSICAL EXAMINATION: GENERAL: Patient is a pleasant female who is in no acute distress. The patient appears their stated age. She is currently intubated and sedated. VITAL SIGNS: Blood pressure 110/70, pulse 80s, respirations 20. NEUROLOGIC: The patient is alert and oriented x3 with no focal neurologic deficits. HEENT: Sclerae without icterus. Mouth has moist mucous membranes with normal pallor. NECK: No JVD. Carotid upstroke brisk. No bruits bilaterally. LUNGS: Clear to auscultation with unlabored respirations. BACK: No scoliosis or kyphosis. CARDIAC: Regular rate and rhythm with normal S1 and S2. No S3 or S4 noted. No significant rubs, murmurs, thrills, or gallops noted throughout the precordium. PMI is not displaced. There is no parasternal heave. ABDOMEN: Soft, nontender, nondistended. No peritoneal signs present. No hepatosplenomegaly. No abnormal striae. EXTREMITIES: 2+ femoral and 2+ dorsalis pedis pulses. No cyanosis, clubbing, or edema. SKIN: No gross abnormalities. PERTINENT LABS: Current pH 7.1, hemoglobin 10.7, calcium 5.9, creatinine 1.37, sodium 154, potassium 3.8. IMPRESSION: 1. Recent respiratory arrest. 2. Status post cardiac arrest. 3. Acidosis. 4. Atrial fibrillation with rapid ventricular response. RECOMMENDATIONS: The patient did have a wide-complex tachycardia, likely related to underlying left bundle-branch block. At this point, she appears to be cardiovascularly stable. I would agree with correcting her acidosis. This is likely the precipitating factor to her current demise. Again, she appears stable. We would keep her on IV amiodarone for 12 to 18 hours as she stabilizes and as her acidosis improves. 1. I will also recommend echo and doppler. Job ID: [id number]
[2018-09-19] MEDS ORDERED: Furosemide 40 MG/4 ML VIAL SLOW IVP SCH (16:00)
--- NOTE | 2018-09-19 19:07 | EKG ---
Test Reason : Blood Pressure : / mmHG Vent. Rate : 062 BPM Atrial Rate : 062 BPM P-R Int : 160 ms QRS Dur : 152 ms QT Int : 442 ms P-R-T Axes : 015 024 217 degrees QTc Int : 448 ms Normal sinus rhythm Left bundle branch block Abnormal ECG Confirmed by FAHAD GARCIA, HEAVEN ([id number]), international editorial producer AMARA ROY ([id number]) on 09/19/2018 7:06:27 PM Referred By: Confirmed By:HEAVEN VÁSQUEZ MD
[2018-09-19] MEDS: Enoxaparin Sodium 30 MG/0.3 ML SYRINGE SC SCH (21:38)
[2018-09-19] MEDS: Atorvastatin Calcium 40 MG TAB PER TUBE SCH (21:39)
--- NOTE | 2018-09-19 21:50 | PDOC.GSPN ---
Surgery Progress Note: Subj - Subjective Narrative: Mrs Silva became more somnolent today likely from her stroke and was increasingly acidotic. She was intubated but became bradycardiac and dropped her pressure and underwent a brief CPR with return of vital signs. She is now on levophed to maintain her blood pressure but is following simple commands. Her family has decided not to do further CPR if she codes again. Her abdominal VAC is in place and her colostomy is healthy in appearance with stool in the bag. Abdomen is soft and nondistended. She is quite edematous especially in her hands. White count was up quite a bit this morning and she had a severe acidosis on ABG. BUN and creatinine had also gone up somewhat. Urine output has been marginal. Assessment/plan: Status post Garcia's procedure for complicated diverticulitis. Her colostomy is working well and the VAC is intact with minimal drainage, but she had respiratory failure likely related to her pre- existing debilitation, postoperative state and acute stroke. She had a brief cardiac arrest from which she was resuscitated but her prognosis is poor. Her family has decided against further CPR. Her bowels are working but I don't want to give her gastric feeds right now because of her tenuous clinical picture. The nurse was instructed to start clamping the NG in the morning and check residuals. If residuals are less than 200 we can start some low volume tube feeds, continuing to check residuals. Urine output is marginal but the patient has anasarca and an elevated BNP so I did not give her any additional fluids today. Surgery Progress Note: Obj - Vital signs Vital signs: Vital Signs - Most Recent Temp Pulse Resp BP Pulse Ox 97.6 F 74 19 162/77 H 97 09/19/18 16:00 09/19/18 19:05 09/19/18 19:04 09/19/18 16:04 09/19/18 09:19 Surgery Progress Note: Results - Labs Result Diagrams: 09/19/18 04:45 09/19/18 11:55 Lab results: Laboratory Results - last 24 hr 09/19/18 09/19/18 09/19/18 10:13 10:30 11:54 Specimen Type ARTERIAL Puncture Site RRA Bicarbonate Actual 15.5 L ABG pH 7.11 L* ABG pCO2 49.9 H ABG pO2 72.5 H ABG O2 Sat Calc/Noemi 93.8 L ABG O2 Content 14.1 L ABG Base Excess -13.6 L ABG Hematocrit 32.0 L ABG Hemoglobin 10.8 L ABG Oxyhemoglobin 92.7 L ABG Carboxyhemoglobin 0.9 ABG Methemoglobin 0.30 ABG Deoxyhemoglobin 6.1 H [place]tw[place] Test POSITIVE A-a O2 Gradient 64.765 H Sodium 133 L Potassium 3.61 L Chloride 112 H Ionized Calcium 1.01 L Mode of Support 2LNC Mechanical Rate Inspired O2 28 Inspiratory Time Peak Inspir Pressure PEEP or CPAP Carbon Dioxide Anion Gap BUN Creatinine Estimated GFR (MDRD) Glucose POC Glucose 334 H Lactic Acid Calcium Phosphorus 1.4 L Magnesium 1.5 L 09/19/18 09/19/18 09/19/18 11:55 11:55 12:20 Specimen Type ARTERIAL Puncture Site RRA Bicarbonate Actual 11.2 L ABG pH 7.19 L* ABG pCO2 30.0 L ABG pO2 64.0 H ABG O2 Sat Calc/Noemi 92.2 L ABG O2 Content 7.8 L ABG Base Excess -15.6 L ABG Hematocrit 18.0 L ABG Hemoglobin 6.1 L ABG Oxyhemoglobin 90.1 L ABG Carboxyhemoglobin 2.0 ABG Methemoglobin 0.30 ABG Deoxyhemoglobin 7.6 H [place]tw[place] Test POSITIVE A-a O2 Gradient 611.500 H Sodium 154 H 140 Potassium 3.8 2.02 L Chloride 116 H 125 H Ionized Calcium 0.70 L Mode of Support AC/PC Mechanical Rate 21 Inspired O2 100 Inspiratory Time 0.70 Peak Inspir Pressure 23 PEEP or CPAP 5.0 Carbon Dioxide 29 Anion Gap 13 BUN 41 H Creatinine 1.37 H Estimated GFR (MDRD) 37 Glucose 274 H POC Glucose Lactic Acid 2.6 H Calcium 5.9 L* Phosphorus Magnesium 09/19/18 17:14 Specimen Type Puncture Site Bicarbonate Actual ABG pH ABG pCO2 ABG pO2 ABG O2 Sat Calc/Noemi ABG O2 Content ABG Base Excess ABG Hematocrit ABG Hemoglobin ABG Oxyhemoglobin ABG Carboxyhemoglobin ABG Methemoglobin ABG Deoxyhemoglobin Antwan Test A-a O2 Gradient Sodium Potassium Chloride Ionized Calcium Mode of Support Mechanical Rate Inspired O2 Inspiratory Time Peak Inspir Pressure PEEP or CPAP Carbon Dioxide Anion Gap BUN Creatinine Estimated GFR (MDRD) Glucose POC Glucose 254 H Lactic Acid Calcium Phosphorus Magnesium
--- NOTE | 2018-09-19 22:49 | OP ---
DATE OF PROCEDURE: 09/19/2018 SERVICE: Pulmonary Medicine. PROCEDURE PERFORMED: Emergent endotracheal intubation. CONSENT: Procedure was performed emergently secondary to clinical deterioration and respiratory failure. STAFF PHYSICIAN: Teddy Tolliver MD MEDICATIONS USED: 1. Versed 2 mg IV push. 2. Propofol 50 mg IV push. PREPROCEDURE DIAGNOSES: 1. Metabolic encephalopathy. 2. Acute hypercapnic respiratory failure. 3. Acute metabolic acidosis. POSTPROCEDURE DIAGNOSES: 1. Metabolic encephalopathy. 2. Acute hypercapnic respiratory failure. 3. Metabolic acidosis. DESCRIPTION OF PROCEDURE: Vital signs monitoring was accomplished by noninvasive hemodynamic monitoring, pulse oximetry, and telemetry. In the supine position, the patient was preoxygenated with [id number] ventilation and maintained with saturations of 100%. Following induction of anesthesia, a #3 GlideScope was inserted through the mouth offering clear identification of the posterior oropharynx and laryngeal structures with a grade 1 view. A 7.5 endotracheal tube was visualized passing through the vocal cords. Placement was confirmed by condensation in the endotracheal tube, color metric capnography, and bi-axillary chest auscultation. The endotracheal tube was secured at 23 cm, measured at the teeth. The patient was placed on mechanical ventilation with good return of volumes. Postprocedure x-ray demonstrated good location of the endotracheal tube within the trachea. ESTIMATED BLOOD LOSS: None. COMPLICATIONS: None. Job ID: [id number]
--- NOTE | 2018-09-19 22:50 | CON ---
DATE OF CONSULTATION: 09-19-18 CHIEF COMPLAINT: Acute stroke. HISTORY OF PRESENT ILLNESS: The patient is an 83-year-old lady who has had some GI problems, prior to this admission she has not had any memory problems or confusion, and is fairly independent, walks with a walker, and children helped her. She lives on the same property of her children. The patient was admitted here to the hospital on of this month and then on the vent. Surgery for her colon perforation and she also had pleurocentesis for pleural effusion, and she has had some fluctuations of her mental status due to the surgery, but yesterday night, she was noted to have vision changes and she reported that to the nurse and she also developed left- sided weakness and CT was performed and she was found to have acute stroke in the right POCKET BUILDER territory and Neurology consultation is requested. The patient can talk. Per family, there has been some fluctuations in her mental status due to her pain and pain medications. PAST MEDICAL HISTORY: The patient has history of recent GI problems and she has diabetes, hypertension, congestive heart failure, and recently normal left ventricular function. PAST SURGICAL HISTORY: Bilateral shoulder surgery several years ago, appendectomy, open cholecystectomy, transvaginal hysterectomy without oophorectomy, right renal cell cancer in 1998, and right breast biopsy, but not for any malignancy. CURRENT MEDICATIONS: Reviewed, per chart. 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 FAMILY HISTORY: Positive for stroke in her father. REVIEW OF SYSTEMS: Difficult to obtain due to the patient's clinical status. LABORATORY DATA: Laboratory workup; white count is 26.8, hemoglobin 10.7, hematocrit 32.6, platelets are 67. Chemistry; sodium 154, potassium 3.8, BUN 41 creatinine 1.37, calcium 5.9. DIAGNOSTIC DATA: Her CT of the head was performed last evening and she has evidence of acute infarct involving right occipital lobe, posterior right temporal lobe, and there is lot of cortical carlton white differentiation and decreased effacement of the sulci involving the posterior right temporal lobe and right occipital lobe. PHYSICAL EXAMINATION: VITAL SIGNS: Her blood pressure was 126/59 and pulse was 80, and her temperature was 97.3. GENERAL APPEARANCE: She has significant edema bilaterally with pitting edema in both upper and lower extremities, son remarked that that was better than yesterday. CHEST: Clear vesicular breathing other than bilateral lower crackles on the bases. CARDIOVASCULAR: No murmurs. NEUROLOGIC: She has slurred speech, tries to talk, and tries to follow some commands. Cranial nerves; pupil on the left is 4+, on the right 3. Tongue deviates to the left side. Palate elevation is normal. No facial asymmetry noted. Motor examination; bulk, normal. Tone, normal. Hand stallion keeper 50% on the left side. Both extremities are weak in both upper and lower extremities. It is difficult to assess her strength, but generally seems to be weaker on the left but she has generalized weakness throughout her body and she has absent left knee jerk and Babinski's bilaterally extensive. IMPRESSION AND RECOMMENDATIONS: The patient with multiple medical issues and she is elderly, did have an acute right posterior circulation event in the setting of recent surgery; therefore, is not a candidate for any IV tPA or any other procedure. She also has low platelet count at this time. Even though we can re-evaluate her circulation with a CT angio, I do not think it is immediately required, I think she is not a candidate due to her renal function. It is best we clinically monitor this patient and her examination showed diffuse generalized weakness which I think she will improve. I will see her again tomorrow. Please monitor for any further neurological changes. Job ID: [id number] [facility]
[2018-09-20] MEDS: Acetaminophen 1,000 MG in Premix Bag 1 BAG IVPB SCH ×2 (00:10→05:55)
[2018-09-20] MEDS: fentaNYL Citrate/PF 2,000 MCG in Sodium Chloride 0.9% 60 ML IV SCH ×2 (00:37→23:37)
[2018-09-20] MEDS: Piperacillin/Tazobactam 3.375 GM in Sodium Chloride 0.9% 100 ML IVPB SCH ×5 (00:52→23:51)
[2018-09-20] MEDS: Sodium Bicarbonate 150 MEQ in Dextrose 5% in Water 1,000 ML IV SCH ×3 (03:27→22:42)
[2018-09-20 05:16] LABS: Band 8 % (5-11); Lymphocytes 1 % (21-51); MDiff Complete? YES; Mean Corpuscular HGB CONC 34.9 g/dL (32.0-36.0); Mean Corpuscular Hemoglobin 31.5 pg (27.0-31.0); Mean Corpuscular Volume 90.1 fL (78.0-98.0); Mean Platelet Volume 7.9 fL (7.4-10.4); Monocytes 2 % (0-10); Neutrophil 88 % (42-75); PLT Morphology Comment Appears Decreased; Platelet Count 58 thou/uL (130-400); RBC Distribution Width 13.2 % (11.5-14.5); RBC Morphology Normal; Reactive Lymphocytes 1 % (0-10); Red Blood Cell (RBC) Count 2.56 mill/uL (4.20-5.40); White Blood Cell (WBC) Count 20.5 thou/uL (4.8-10.8)
[2018-09-20 05:19] LABS: ALT (SGPT) 13 U/L (8-55); AST (SGOT) 19 U/L (5-34); Albumin 1.8 g/dL (3.4-4.8); Alkaline Phosphatase 78 U/L (40-150); Anion Gap 11 mmol/L (10-20); BUN (Urea Nitrogen) 46 mg/dL (9.8-20.1); Bilirubin, Total 0.4 mg/dL (0.2-1.2); Calc. Creatinine Clearance 32 mL/min (70-130); Calcium 6.2 mg/dL (7.8-10.44); Carbon Dioxide 19 mmol/L (23-31); Chloride 113 mmol/L (98-107); Estimated GFR-MDRD 32; Globulin 1.6 g/dL (2.4-3.5); Glucose 209 mg/dL (83-110); Magnesium 2.2 mg/dL (1.6-2.6); Potassium 3.5 mmol/L (3.5-5.1); Protein, Total 3.4 g/dL (6.0-8.3); Sodium 139 mmol/L (136-145)
[2018-09-20] MEDS: HumaLOG 300 UNITS/3 ML VIAL SC PRN (05:59)
[2018-09-20 07:43] LABS: Actual Bicarbonate (HCO3a) 19.7 mEq/L (22-28); Base Excess (BEa) -3.8 mEq/L (-2.0 to +3.0); CO2 Tension 29.8 mmHg (35.0-45.0); Calcium, Ionized 0.92 mmol/L (1.12-1.30); Hemoglobin (Hb) 8.5 g/dL (12.0-16.0); O2 Tension (PaO2) 64.8 mmHg (> 60.0); Potassium - ABG Lab 3.28 mmol/L (3.70-5.30); pH, Arterial 7.44 (7.35-7.45)
[2018-09-20 07:50] LABS: Puncture Site RRA
--- NOTE | 2018-09-20 07:56 | PDOC.CTH ---
Cardiology Progress Note - Subjective Episode lat pm of brief HR in the 20's. Lasted less than 10 seconds. Otherwise HR stable - Objective Vital Signs Temp Pulse Resp BP Pulse Ox 09/20/18 06:53 64 101/46 L 09/20/18 06:00 17 09/20/18 04:00 97.5 F L 17 09/20/18 03:23 62 09/20/18 00:08 69 09/20/18 00:07 71 25 H 100 09/20/18 00:00 97.4 F L 17 09/19/18 22:10 62 09/19/18 20:00 25 H 99 Admit Weight 170 lb Weight 228 lb 09/19/18 09/20/18 09/21/18 06:59 06:59 06:59 Intake Total 4320 4009.3 Output Total 922 595 Balance 3398 3414.3 - Physical Examination General/Neuro: other: (I/S) Neck: carotid US brisk, no JVD present Lungs: CTA, unlabored respirations Heart: PMI normal, RRR Abdomen: soft Extremities: + femoral B - Labs Result Diagrams: 09/20/18 04:53 09/20/18 04:53 Troponin/CKMB Troponin I Less than 0.010 ng/mL (< 0.028) 09/11/18 12:05 - Assessment/Plan Recent cardiac arrest Acidosis Garcia procedure for diverticulitis Afib CV status stable Episode of bradycardia brief. Continue to observe. Review echo Prognosis given comorbidities appears poor Pts family has opted for no further CPR per GS
[2018-09-20 08:39] LABS: Phosphorus 2.1 mg/dL (2.3-4.7)
--- NOTE | 2018-09-20 08:59 | RAD ---
PORTABLE AP CHEST XRAY: DATE: 09/20/2018. HISTORY: On ventilator. Followup evaluation. COMPARISON: 09/19/2018. FINDINGS: Endotracheal tube and nasogastric tube remain in place and unchanged in position. Left subclavian ce ntral venous catheter is also stable in position which again crosses the midline with tip overlying t he right lung apex. There are bilateral pleural effusions and associated atelectasis. There are increasing bilateral per ihilar interstitial densities which could be related to pulmonary edema or infectious process. Pulmo nary vasculature is also mildly increased. No other interval change. IMPRESSION: 1. Lines and tubes stable in position. 2. Bilateral pleural effusions and atelectasis. 3. Pulmonary vascular congestion with interval development of an increase in perihilar interstitial densities asymmetrically greater on the right which may be related to asymmetric pulmonary edema or p ossibly infectious process. POS: MARK
[2018-09-20] MEDS: Insulin Glargine 10 UNITS in Pre-Filled Syringe 1 EACH SC SCH ×2 (09:07→21:28)
[2018-09-20] MEDS: Pantoprazole 40 MG VIAL IVP SCH (09:07)
[2018-09-20] MEDS: Famotidine/PF 20 mg/2ml Vial SLOW IVP SCH (09:07)
[2018-09-20] MEDS: Micafungin 100 MG in Sodium Chloride 0.9% 100 ML IVPB SCH (11:30)
[2018-09-20] MEDS ORDERED: Furosemide 40 MG/4 ML VIAL SLOW IVP SCH ×2 (12:15→19:00)
--- NOTE | 2018-09-20 12:33 | PRG ---
DATE OF SERVICE: 09/20/2018 SERVICE: Pulmonary Medicine. INTERVAL HISTORY: The patient is doing really well from respiratory standpoint. Overnight, she had a bradycardic spell for about 20 or 30 seconds. Since that event, she has had no significant cardiovascular instability. She has cleared her sepsis profile. She has actually improved her acidosis. She cannot provide any additional elements to the history currently. PHYSICAL EXAMINATION: VITAL SIGNS: Afebrile, pulse 73, blood pressure 141/74, respirations 18, saturation 97% on 37% FiO2 and PEEP of 5. GENERAL: The patient is intubated and sedated. HEENT: Normocephalic and atraumatic. Sclerae white. Conjunctivae pink. Oral mucosa is moist without lesions. LUNGS: Decent air entry. Extensive rhonchi and crackles are present. There is no prolonged expiratory phase or wheezing. HEART: Normal rate and regular. ABDOMEN: Soft, nontender, and nondistended. Bowel sounds are positive. MUSCULOSKELETAL: No cyanosis or clubbing. There is diffuse 2 to 3+ pitting throughout. GENITOURINARY: Turner catheter in place. NEUROLOGIC: Grossly nonfocal. LABORATORY DATA: WBC is downtrending to 20.5, hemoglobin 8.0, platelets 58,000 and quite low. PH 7.44, pCO2 29, PO2 65, corresponding to a saturation of 94%. Creatinine 1.56, anion gap 11, BUN 46. Basic metabolic profile is otherwise unremarkable. Ngozi albicans growing in the lungs. Body fluid cultures negative to date. IMAGING: Chest x-ray demonstrates left side infiltrates and bilateral pleural effusions. ASSESSMENT: 1. Septic shock secondary to gross peritonitis. 2. Diverticulitis, status post surgical intervention with colostomy formation, postop day #4. 3. Cerebrovascular accident, acute. 4. Acute kidney injury. 5. Non-anion gap metabolic acidosis, improving. 6. Pleural effusion, status post thoracentesis on the left, lymphocytic exudate. 7. PEA arrest, brief. DISCUSSION AND PLAN: We will continue our empiric antibiotics including micafungin, and Zosyn. I will decrease the bicarb drip to 75 an hour. The thing that prevents us from extubating this patient is her severe volume overload. As such, I will initiate some Lasix scheduled today and on a daily basis. Once we have control of her volume status, she may be a candidate for extubation. The family does not appreciate that we have a very long road ahead of us and we have a big unknown of how much neurologic function she can recover. Ultimately, the family does not want to pursue any aggressive maneuvers like PEG tube or tracheostomy. They would also decline dialysis. That being said, they would like to be aggressive over the next three or four days to see whether or not we can successfully extubate her so that she can participate in a meaningful way with physical therapy moving forward. Pulmonary Critical Care will follow very closely. CRITICAL CARE TIME: 30 minutes. Job ID: [id number]
[2018-09-20] MEDS ORDERED: Potassium Phosphate 30 MMOL in Sodium Chloride 0.9% 500 ML IVPB SCH (12:45)
[2018-09-20] MEDS: Calcium Gluconate 4.6 MEQ in Sodium Chloride 0.9% 100 ML IVPB SCH ×2 (13:20→18:30)
--- NOTE | 2018-09-20 15:58 | PRG ---
DATE OF SERVICE: 09/20/2018 INTERVAL HISTORY: The patient coded last night and is now intubated, and she has continued to have significant neurological issues. She had bradycardic spell of 20 to 30 seconds, and she has been stable since, and no new imaging studies are available at this time for her, and she has pain due to fractured ribs. LABORATORY REPORT: White count is 20.5, hemoglobin 8.3, hematocrit 23, and platelets 58. Chemistry; sodium 139, potassium 3.5, chloride 113, bicarb 19, BUN 46, and creatinine 1.56. PHYSICAL EXAMINATION: VITAL SIGNS: Blood pressure 168/86, temperature 98.3, and pulse rate is around 63. GENERAL APPEARANCE: The patient is intubated, and when examined, off sedation, she tends to open her eyes and nods. HEENT: Pupils are symmetric at 4+ and reactive. EXTREMITIES: She has significant edema of both upper and lower extremities. MOTOR: Decreased strength globally and Babinski's is extensive. IMPRESSION: The patient with multiple complications including recent surgery and she coded last night and she also had acute stroke in the right REHABILITATION SERVICES DIRECTOR territory. At this time, it is difficult to assess her neurological status, and I do think that she has too many medical issues at this time. We will recommend continued observation for any neurological changes. When able to, we can obtain an MRI of the brain. Job ID: [id number]
--- NOTE | 2018-09-20 17:34 | PRG ---
DATE OF SERVICE: 09/20/2018 SUBJECTIVE: Ms. Silva is postoperative day #4 from her laparotomy and sigmoid colectomy with ostomy creation. She had a cerebrovascular accident on postoperative day #2, and yesterday, she became somnolent and bradycardic and coded requiring several minutes of CPR. Today, she remains intubated. She is alert and somewhat interactive. She has been diuresed aggressively by Dr. Tolliver. She is on a bicarb drip to treat her acidosis. She was on TPN, but this has been discontinued until she stabilizes. OBJECTIVE: VITAL SIGNS: On examination, she is afebrile with a temperature of 98.2. Her pulse is in the 70s. Blood pressure is 150/72. Oxygen saturation is 100% with an FiO2 of 37%. Her urine output was fairly sluggish, but today has come up to about 100 mL/h with aggressive diuresis. Her Levophed was recently discontinued. LUNGS: Clear to auscultation. ABDOMEN: Obese and obviously edematous in the abdominal wall. There is scant-to-no bowel sounds appreciable. She has a small amount of stool within the ostomy bag on the left abdomen. She has a wound VAC in her midline abdominal wound. LABORATORY DATA: Showed that her white blood cell count is 20.5 with a hemoglobin of 8.0. Platelet count is low, but fairly stable at 58. Chemistries reveal acidosis with a CO2 level of 19. Her BUN and creatinine are 46 and 1.5. ASSESSMENT: She is relatively stable currently from a hemodynamic standpoint. Continue ventilator support, intravenous antibiotics, and her bicarb drip. We will plan on resuming nutrition in the next day or two. She currently has essentially no bowel sounds, so I would probably start some low volume tube feeds tomorrow if she has some evidence of bowel function. Job ID: [id number]
[2018-09-20] MEDS ORDERED: Dextrose 50% Abboject 50 ML SYRINGE ONE (21:11)
[2018-09-20] MEDS ORDERED: Dextrose 50% Abboject 50 ML SYRINGE IVP PRN (21:15)
[2018-09-20] MEDS: Enoxaparin Sodium 30 MG/0.3 ML SYRINGE SC SCH (21:29)
[2018-09-20] MEDS: Atorvastatin Calcium 40 MG TAB PER TUBE SCH (21:29)
[2018-09-21 05:01] LABS: #Lymphocytes 0.3 thou/uL (1.20-3.40); #Monocytes 0.2 thou/uL (0.11-0.59); #Neutrophils 10.9 thou/uL (1.40-6.50); %Eosinophils 0.1 % (0.0-10.0); %Lymphocytes 2.7 % (21.0-51.0); %Monocytes 1.8 % (0.0-10.0); %Neutrophils 95.4 % (42.0-75.0); Hemoglobin 7.2 g/dL (12.0-16.0); Mean Corpuscular HGB CONC 34.4 g/dL (32.0-36.0); Mean Corpuscular Hemoglobin 30.8 pg (27.0-31.0); Mean Corpuscular Volume 89.6 fL (78.0-98.0); Mean Platelet Volume 8.6 fL (7.4-10.4); Platelet Count 60 thou/uL (130-400); RBC Distribution Width 13.2 % (11.5-14.5); Red Blood Cell (RBC) Count 2.33 mill/uL (4.20-5.40); White Blood Cell (WBC) Count 11.4 thou/uL (4.8-10.8)
[2018-09-21 05:18] LABS: Anion Gap 13 mmol/L (10-20); BUN (Urea Nitrogen) 47 mg/dL (9.8-20.1); Calc. Creatinine Clearance 42 mL/min (70-130); Calcium 6.3 mg/dL (7.8-10.44); Carbon Dioxide 22 mmol/L (23-31); Chloride 111 mmol/L (98-107); Estimated GFR-MDRD 31; Glucose 102 mg/dL (83-110); Magnesium 2.1 mg/dL (1.6-2.6); Potassium 3.5 mmol/L (3.5-5.1); Sodium 142 mmol/L (136-145)
[2018-09-21] MEDS: Piperacillin/Tazobactam 3.375 GM in Sodium Chloride 0.9% 100 ML IVPB SCH ×4 (06:11→23:36)
[2018-09-21] MEDS: Furosemide 40 MG/4 ML VIAL SLOW IVP SCH (06:11)
[2018-09-21 06:56] LABS: Base Excess (BEa) -0.9 mEq/L (-2.0 to +3.0); CO2 Tension 34.3 mmHg (35.0-45.0); Calcium, Ionized 0.91 mmol/L (1.12-1.30); Carboxyhemoglobin (COHb) 2.1 gm% (0.0-3.0); Hemoglobin (Hb) 7.7 g/dL (12.0-16.0); O2 Tension (PaO2) 90.3 mmHg (> 60.0); Potassium - ABG Lab 3.35 mmol/L (3.70-5.30); pH, Arterial 7.44 (7.35-7.45)
[2018-09-21 06:58] LABS: Puncture Site LRA
[2018-09-21 06:59] LABS: ALV-art Gradient 116.375 (0-20)
[2018-09-21 07:52] LABS: Phosphorus 3.5 mg/dL (2.3-4.7)
[2018-09-21] MEDS: Insulin Glargine 10 UNITS in Pre-Filled Syringe 1 EACH SC SCH ×2 (08:20→20:59)
[2018-09-21] MEDS: Pantoprazole 40 MG VIAL IVP SCH (08:27)
[2018-09-21] MEDS: Famotidine/PF 20 mg/2ml Vial SLOW IVP SCH (08:28)
--- NOTE | 2018-09-21 08:39 | PRG ---
DATE OF SERVICE: This is 35 minutes critical care time. SUBJECTIVE: The patient remains intubated on mechanical ventilation and there have been no acute changes overnight. OBJECTIVE: VITAL SIGNS: Her temperature is 97.8 with no fever over the last 24 hours. Pulse is 71, blood pressure 183/82, O2 saturation 97%. Intake 2179 mL, output 2439 mL, most of that urine. HEENT: Unremarkable. NECK: No JVD. LUNGS: Coarse breath sounds. CARDIAC: S1 and S2 regular. ABDOMEN: Tender to palpation. She has a colostomy present in left lower quadrant. EXTREMITIES: Edematous in all extremities. She has bruising over her left anterior tibial region. LABORATORY DATA: Sodium 142, potassium 3.5, chloride 111, CO2 of 22, BUN 47, creatinine 1.6, glucose 102, calcium 6.3. PH 7.44, pCO2 of 34, pO2 of 90, SIMV rate 13 with inspiratory pressure of 17, and a PEEP of 5, FiO2 35%. White count 11.4, hemoglobin 7.2, hematocrit 20.9, and platelet count 60. ASSESSMENT: 1. Peritonitis resulting in septic shock. 2. Severe metabolic acidosis secondary to the shock-this is improving. 3. Diverticulitis requiring surgical intervention. 4. Cerebrovascular accident with left-sided hemiparesis. 5. Acute kidney injury, which is improving. 6. Non-anion gap metabolic acidosis, which is improving. 7. Bilateral pleural effusions. 8. Status post brief cardiopulmonary arrest with pulseless electrical activity. PLAN: 1. I will go ahead and convert her back to TPN and stop the bicarbonate drip. I would agree that she is in no shape for extubation at this time given her severe total body fluid overload. 2. She is continuing broad-spectrum antibiotics with micafungin and Zosyn. She maybe facing the prospect of tracheostomy and PEG tube placement. Job ID: [id number]
[2018-09-21] MEDS ORDERED: Calcium Gluconate 4.6 MEQ in Sodium Chloride 0.9% 100 ML IVPB SCH (10:35)
[2018-09-21] MEDS: Micafungin 100 MG in Sodium Chloride 0.9% 100 ML IVPB SCH (10:47)
--- NOTE | 2018-09-21 11:28 | PRG ---
DATE OF SERVICE: 09/21/2018 SUBJECTIVE: Ms. Silva is hospital day #11 following her admission for perforated diverticulitis. She is postoperative day #5 from her laparotomy with sigmoid colectomy and ostomy creation. She had a cerebrovascular accident 3 days ago, and 2 days ago she coded, requiring CPR and intubation. She was diuresed yesterday as she was obviously severely fluid overloaded. She remains intubated today. She is alert with eyes open, but not significantly interactive. She remains on a bicarb drip today, although TPN has been reordered, but not yet restarted. Her urine output for yesterday was only 2400 mL in spite of fairly aggressive diuresis with Lasix. OBJECTIVE: VITAL SIGNS: On examination today, she is afebrile. Pulse is 75, blood pressure is currently 169/107. GENERAL: She is resting comfortably while intubated. She has an NG tube in place, but has little gastric output. LUNGS: Clear to auscultation. CARDIAC: Regular rate and rhythm. ABDOMEN: Obese with a wound VAC intact in the midline. Bowel sounds are present and appeared to be close to normoactive. She has significant edema of the abdominal wall. EXTREMITIES: Fairly severely edematous as well. LABORATORY DATA: Her hemoglobin has drifted down to 7.2. Her white blood cell count has dropped from 20.5 yesterday to 11.4 today. Platelet count has been in the 50s and 60s for the past 4 days, and today it remains 60. She has a significant left shift. Her chemistry panel reveals that her sodium and potassium were normal. Chloride is a little bit high at 111, but it is down over the past couple of days. Her CO2 is a little bit low at 22, but up from 19 yesterday. Her creatinine is 1.59, which is stable. BUN is 47, which is also stable. Her calcium is quite low at 6.3, but this has been low over the course of the past week. ASSESSMENT: The patient is relatively stable on the ventilator in the intensive care unit. She is still obviously severely fluid overloaded. TPN will be re-initiated today. She will continue IV antibiotics. I will begin trickle tube feeds per NG tube. Calcium will be replaced. She will continue aggressive medical support and diuresis. Job ID: [id number]
[2018-09-21 12:20] VITALS: BMI 42.3
[2018-09-21] MEDS: SODIUM ACETATE IV SCH (14:34)
[2018-09-21] MEDS: SODIUM CHLORIDE IV SCH (14:34)
[2018-09-21] MEDS: POTASSIUM ACETATE IV SCH (14:34)
[2018-09-21] MEDS: [UNRECOGNIZED DRUG - OTHER] IV SCH (14:34)
[2018-09-21] MEDS: fentaNYL Citrate/PF 2,000 MCG in Sodium Chloride 0.9% 60 ML IV SCH (15:53)
--- NOTE | 2018-09-21 15:55 | PDOC.PN ---
- Subjective Encounter Start Date: 09/21/18 Encounter Start Time: 15:55 Subjective: f/u for resp failure, septic shock and multiple metabolic derangements -: due to peritonitis. Receiving Zosyn, Solumedrol and remains on mech vent. - Objective Resuscitation Status - Order Detail: 09/19/18 22:16 Resuscitation Status Routine Resuscitation Status: PRTL: Intubate only Discussed with: children at bedside MAR Reviewed: Yes Vital Signs & Weight: Vital Signs (12 hours) Temp Pulse Resp BP Pulse Ox 09/21/18 15:52 98.0 F 99 09/21/18 15:51 98.0 F 09/21/18 14:55 83 169/91 H 09/21/18 14:00 17 09/21/18 13:40 72 157/93 H 09/21/18 13:38 74 13 98 09/21/18 13:32 97.6 F 98 09/21/18 13:12 98.1 F 09/21/18 12:00 98.0 F 19 09/21/18 10:47 75 177/109 H 09/21/18 10:29 75 169/107 H 09/21/18 10:00 13 09/21/18 08:00 13 09/21/18 07:32 98 09/21/18 07:00 97.8 F 09/21/18 06:50 68 139/70 09/21/18 06:45 71 20 99 09/21/18 06:00 13 09/21/18 04:00 13 Weight Admit Weight 170 lb Weight 224 lb Most Recent Monitor Data Heart Rate from ECG 67 NIBP 159/57 NIBP BP-Mean 104 Respiration from ECG 14 SpO2 98 I&O: 09/20/18 09/21/18 09/22/18 06:59 06:59 06:59 Intake Total 4009.3 2179 1225 Output Total 595 9309 1885 Balance 3414.3 -260 -660 Result Diagrams: 09/21/18 04:55 09/21/18 04:55 Additional Labs: Accuchecks 09/21/18 09/21/18 09/20/18 11:48 01:58 22:41 POC Glucose 133 H 103 118 H 09/20/18 09/20/18 21:03 18:41 POC Glucose 65 L 81 Microbiology 09/17/18 09:25 Pre Bronchial washings Respiratory Culture - Final Presumptive Ngozi albicans 09/11/18 Unknown Pleural fluid Body Fluid Culture - Final 09/11/18 Unknown Pleural fluid Acid Fast Bacilli Smear - Final Laboratory Tests 09/18/18 09/19/18 09/19/18 04:37 04:45 11:55 WBC 16.0 H 26.8 H Hgb 9.7 L 10.7 L Plt Count 53 L 67 L Creatinine 1.37 H 09/20/18 04:53 WBC Hgb Plt Count Creatinine 1.56 H Radiology Reviewed by me: Yes (2D echo - EF 50-55%, diast dysfxn, limited study) EKG Reviewed by me: Yes (Tele - SR) Phys Exam - Physical Examination sedate on mech vent ETT in place HEENT: oral pharynx no lesions Neck: no nodes, no JVD, supple, full ROM diminished in bases Coarse sounds bilat Respiratory: no wheezing S1, S2 Cardiovascular: RRR, no significant murmur, no rub, gallop + ostomy in place edematous extremities Musculoskeletal: pulses present, edema present Skin: normal turgor, cap refill <2 seconds Deviation from normal: Turner in place with loreto urine Dx/Plan (1) MARILIA (acute kidney injury) Code(s): N17.9 - ACUTE KIDNEY FAILURE, UNSPECIFIED Status: Acute Comment: Mild improvement, avoid nephrotoxic meds and limit contrast (2) Acute CVA (cerebrovascular accident) Code(s): I63.9 - CEREBRAL INFARCTION, UNSPECIFIED Status: Acute Comment: on ASA,statin, R SYSTEMS 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 ANALYST territorial involvement with L hemiparesis (3) Sigmoid diverticulitis Code(s): K57.32 - DVTRCLI OF LG INT W/O PERFORATION OR ABSCESS W/O BLEEDING Status: Acute Comment: with perforation.s/p sigmoid colectomy and colostomy , continue Zosyn (4) CKD (chronic kidney disease) stage 3, GFR 30-59 ml/min Code(s): N18.3 - CHRONIC KIDNEY DISEASE, STAGE 3 (MODERATE) Status: Chronic Comment: s/p R nephrectomy 15 yrs ago (5) DM2 (diabetes mellitus, type 2) Status: Chronic Comment: Continue Glargine 10u daily, ISS - Plan continue antibiotics, nephrology social worker, respiratory therapy, DVT proph w/SCDs Continue critical support -: Continue mech ventilation -: continue Zosyn -: Nutritional support with TPN -: Continue Lasix 40mg IV daily * AM lab: BMP, CBC * Poor prognosis, consider Palliative consult
--- NOTE | 2018-09-21 17:26 | PDOC.CTH ---
Cardiology Progress Note - Subjective Remains sedated intubated. - Objective Vital Signs Temp Pulse Resp BP Pulse Ox 09/21/18 16:00 22 H 09/21/18 15:52 98.0 F 99 09/21/18 15:51 98.0 F 09/21/18 14:55 83 169/91 H 09/21/18 14:00 17 09/21/18 13:40 72 157/93 H 09/21/18 13:38 74 13 98 09/21/18 13:32 97.6 F 98 09/21/18 13:12 98.1 F 09/21/18 12:00 98.0 F 19 09/21/18 10:47 75 177/109 H 09/21/18 10:29 75 169/107 H 09/21/18 10:00 13 09/21/18 08:00 13 09/21/18 07:32 98 09/21/18 07:00 97.8 F 09/21/18 06:50 68 139/70 09/21/18 06:45 71 20 99 09/21/18 06:00 13 Admit Weight 170 lb Weight 224 lb 09/20/18 09/21/18 09/22/18 06:59 06:59 06:59 Intake Total 4009.3 2179 1225 Output Total 595 2519 2055 Balance 3414.3 -260 -830 - Physical Examination General/Neuro: other: (S/I) Neck: no JVD present Lungs: CTA, unlabored respirations Heart: RRR Abdomen: NT/ND Extremities: + edema B (trace) - Telemetry Telemetry Rhythm: NSR - Labs Result Diagrams: 09/21/18 04:55 09/21/18 04:55 Troponin/CKMB Troponin I Less than 0.010 ng/mL (< 0.028) 09/11/18 12:05 - Assessment/Plan 1. Recent cardiac arrest 2. Acidosis 3. Garcia procedure for diverticulitis 4. Afib PLAN: - CV status stable - No more episodes of bradycardia.
[2018-09-21] MEDS: HumaLOG 300 UNITS/3 ML VIAL SC PRN ×2 (18:35→20:58)
[2018-09-21] MEDS ORDERED: Acetaminophen 1,000 MG in Premix Bag 1 BAG IVPB PRN (20:22)
[2018-09-21] MEDS: Enoxaparin Sodium 30 MG/0.3 ML SYRINGE SC SCH (20:55)
[2018-09-21] MEDS: Atorvastatin Calcium 40 MG TAB PER TUBE SCH (20:56)
[2018-09-22] MEDS: fentaNYL Citrate/PF 2,000 MCG in Sodium Chloride 0.9% 60 ML IV SCH (04:42)
[2018-09-22 05:02] LABS: #Lymphocytes 0.4 thou/uL (1.20-3.40); #Monocytes 0.3 thou/uL (0.11-0.59); #Neutrophils 10.7 thou/uL (1.40-6.50); %Eosinophils 0.2 % (0.0-10.0); %Lymphocytes 3.4 % (21.0-51.0); %Monocytes 2.5 % (0.0-10.0); Hemoglobin 8.8 g/dL (12.0-16.0); Mean Corpuscular HGB CONC 34.6 g/dL (32.0-36.0); Mean Corpuscular Hemoglobin 30.6 pg (27.0-31.0); Mean Corpuscular Volume 88.5 fL (78.0-98.0); Mean Platelet Volume 8.1 fL (7.4-10.4); Platelet Count 75 thou/uL (130-400); RBC Distribution Width 13.4 % (11.5-14.5); Red Blood Cell (RBC) Count 2.88 mill/uL (4.20-5.40); White Blood Cell (WBC) Count 11.4 thou/uL (4.8-10.8)
[2018-09-22 05:22] LABS: Anion Gap 14 mmol/L (10-20); BUN (Urea Nitrogen) 52 mg/dL (9.8-20.1); Calc. Creatinine Clearance 40 mL/min (70-130); Calcium 6.8 mg/dL (7.8-10.44); Carbon Dioxide 22 mmol/L (23-31); Chloride 109 mmol/L (98-107); Estimated GFR-MDRD 29; Glucose 331 mg/dL (83-110); Potassium 3.4 mmol/L (3.5-5.1); Sodium 142 mmol/L (136-145)
[2018-09-22] MEDS: Piperacillin/Tazobactam 3.375 GM in Sodium Chloride 0.9% 100 ML IVPB SCH ×2 (05:33→12:30)
[2018-09-22] MEDS: HumaLOG 300 UNITS/3 ML VIAL SC PRN ×2 (05:34→10:45)
[2018-09-22] MEDS: Furosemide 40 MG/4 ML VIAL SLOW IVP SCH (05:34)
[2018-09-22 06:43] LABS: Actual Bicarbonate (HCO3a) 23.8 mEq/L (22-28); Base Excess (BEa) 0.9 mEq/L (-2.0 to +3.0); CO2 Tension 30.1 mmHg (35.0-45.0); Calcium, Ionized 0.93 mmol/L (1.12-1.30); Carboxyhemoglobin (COHb) 1.6 gm% (0.0-3.0); Hemoglobin (Hb) 6.8 g/dL (12.0-16.0); O2 Tension (PaO2) 86.2 mmHg (> 60.0); Potassium - ABG Lab 3.14 mmol/L (3.70-5.30); pH, Arterial 7.52 (7.35-7.45)
[2018-09-22 06:44] LABS: ALV-art Gradient 125.725 (0-20); Puncture Site LRA
[2018-09-22] MEDS: Insulin Glargine 10 UNITS in Pre-Filled Syringe 1 EACH SC SCH (08:44)
[2018-09-22] MEDS: Pantoprazole 40 MG VIAL IVP SCH (08:44)
[2018-09-22] MEDS ORDERED: Insulin Glargine 20 UNITS in Pre-Filled Syringe 1 EACH SC SCH ×3 (08:50→21:00)
[2018-09-22] MEDS ORDERED: Furosemide 40 MG/4 ML VIAL IVP SCH ×2 (09:00→18:00)
--- NOTE | 2018-09-22 09:11 | PRG ---
DATE OF SERVICE: 09/22/2018 SUBJECTIVE: Shira is an 83-year-old female, who unfortunately suffered a CVA. She is status post lap for perforated sigmoid colon. She is reintubated again for progressive respiratory failure. Last chest x-ray showed significant bilateral pleural effusion. This morning, she is on Fentanyl 150 mL/h. OBJECTIVE: VITAL SIGNS: Pulse is 86, saturations 100%, blood pressure is 177/100, and respiratory rate 20. CHEST: Bilateral rhonchi and crackles. CARDIAC: Normal S1 and S2. No gallops or masses. LABORATORY DATA: Platelet count is 75,000, hemoglobin and hematocrit are 8.8 and 25, white count 11,000. PO2 is 86, pCO2 is 30% on FiO2. Creatinine 1.6. IMPRESSION: 1. Multiorgan failure, respiratory failure, cerebrovascular accident, diastolic dysfunction, bilateral pleural effusions, elevated pulmonary hypertension, status post lap, status post cerebrovascular accident. We are going to continue present supportive care. She is not weanable. 2. Renal failure. 3. Peritonitis. 4. Cerebrovascular accident with left-sided hemiparesis, though she apparently does move somewhat. Renal failure, palpable effusion. 5. Continue vent support. Family to decide about ongoing care. Continue diuretics, nutrition, PT, steroids. One-half hour of critical care time. Job ID: [id number]
[2018-09-22] MEDS: Micafungin 100 MG in Sodium Chloride 0.9% 100 ML IVPB SCH (10:45)
[2018-09-22] MEDS ORDERED: Insulin Glargine 10 UNITS in Pre-Filled Syringe 1 EACH SC SCH (11:00)
[2018-09-22 11:41] VITALS: BP 187/101
--- NOTE | 2018-09-22 11:43 | PDOC.CTH ---
Cardiology Progress Note - Subjective No new issues. Remains intubated. - Objective Vital Signs Temp Pulse Resp BP Pulse Ox 09/22/18 10:00 10 L 09/22/18 08:00 98.7 F 15 09/22/18 06:35 81 128/64 09/22/18 06:31 81 14 99 09/22/18 06:00 15 09/22/18 04:00 13 09/22/18 03:00 98.6 F 09/22/18 02:43 86 09/22/18 02:00 14 09/22/18 01:18 67 14 100 09/22/18 00:00 16 Admit Weight 170 lb Weight 226 lb 3.108 oz 09/21/18 09/22/18 09/23/18 06:59 06:59 06:59 Intake Total 2179 2848 60 Output Total 0902 6940 980 Balance -607 -732 -920 - Physical Examination General/Neuro: other: (S/I) Neck: no JVD present Lungs: unlabored respirations Heart: RRR Abdomen: NT/ND Extremities: + edema B (1+) - Telemetry Telemetry Rhythm: NSR - Labs Result Diagrams: 09/22/18 04:50 09/22/18 04:50 Troponin/CKMB Troponin I Less than 0.010 ng/mL (< 0.028) 09/11/18 12:05 - Assessment/Plan 1. Recent cardiac arrest 2. Acidosis 3. Garcia procedure for diverticulitis 4. Afib 5. S/P Colectomy. PLAN: - CV status stable - No more episodes of bradycardia. - Will sign off. Please call with any questions.
--- NOTE | 2018-09-22 12:52 | PRG ---
DATE OF SERVICE: 09/22/2018 SUBJECTIVE: Ms. Silva is postoperative day #6 from laparotomy with sigmoid colectomy and colostomy creation. She had a cerebrovascular accident 4 days ago and coded 3 days ago. She remains on the ventilator in the intensive care unit. She still has obvious anasarca involving her abdomen and extremities. She is resting relatively comfortably, but any examination of her leads to significant agitation and attempt to palpate her abdomen. This seems to be very uncomfortable for her. During the course of examining her, her children stopped me and asked me to refrain from doing anything that seemed to be uncomfortable for her as they are about to withdraw care and at this time want to focus on her comfort. OBJECTIVE: VITAL SIGNS: On examination, she is afebrile, temperature 98.7, pulse is between 74 and 85, blood pressure is high. It was 187/101 when last checked and currently, it is 212/140 with her being agitated. Her urine output was 3300 mL yesterday. Ostomy has a little bit of thin stool looking material in it. LUNGS: Clear to auscultation. CARDIAC: Regular rate and rhythm. ABDOMEN: Obese and distended. Her abdominal wall is very edematous. The bowel sounds were not appreciated in any quadrant. An attempt to examine her abdomen seemed to elicit significant pain. Again, my exam was stopped per the request of her family. It is difficult to discern if this is anxiety or if there is truly some intraabdominal process. LABORATORY DATA: Her hemoglobin today is 8.8 after I transfused 1 unit of packed red blood cells yesterday and white blood cell count is 11.4. Chemistries reveal electrolyte abnormalities. Her BUN and creatinine are both up at 52 and 1.6. Her potassium is little low at 3.4 and her calcium is low at 6.8. Her glucose levels have gone up significantly since her TPN was restarted and they are averaging about 330. ASSESSMENT: The critically ill patient, who had a cerebrovascular accident, a code requiring CPR, and laparotomy with colostomy creation in the intensive care unit. The family has been somewhat conflicted about thoughts about pursuing aggressive care on her since her initial presentation. At this point, they believe that her mother would want to not continue like this and it sounds like they are planning to withdraw care including terminal extubation. It is difficult to discern based on her current level of function, how she will do while extubated. For now, her antibiotics will be continued, her ventilator will be continued, her TPN will be continued, and her electrolytes will be corrected. I will continue to follow and certainly abide by the request of her children. Job ID: [id number]
[2018-09-22] MEDS ORDERED: Calcium Gluconate 4.6 MEQ in Sodium Chloride 0.9% 100 ML IVPB SCH (13:00)
[2018-09-22] MEDS ORDERED: Morphine 4 MG/ML VIAL SLOW IVP PRN (13:16)
[2018-09-22] MEDS ORDERED: Lorazepam 2 MG/ML VIAL SLOW IVP PRN ×2 (13:18→13:24)
--- NOTE | 2018-09-22 13:21 | PDOC.EVN ---
Event Note - Event Note Event Note: Family wishing to pursue comfort measures and withdraw aggressive care. Will add Morphine Sulfate and Ativan IV for comfort, agitation, anxiety and air hunger. Continue supportive mgmt.
[2018-09-22] MEDS ORDERED: Morphine 10 MG/ML VIAL SLOW IVP PRN (13:24)
[2018-09-22] MEDS: Lorazepam 2 MG/ML VIAL SLOW IVP PRN ×2 (13:42→15:30)
[2018-09-22] MEDS: Morphine 4 MG/ML VIAL SLOW IVP PRN ×6 (14:16→16:20)
[2018-09-22] MEDS: SODIUM ACETATE IV SCH (14:18)
[2018-09-22] MEDS: POTASSIUM ACETATE IV SCH (14:18)
[2018-09-22] MEDS: [UNRECOGNIZED DRUG - OTHER] IV SCH (14:18)
[2018-09-22] MEDS: SODIUM CHLORIDE IV SCH (14:18)
[2018-09-22 16:53] VITALS: TEMP 98.7
--- NOTE | 2018-09-22 18:16 | DIS ---
DATE OF ADMISSION: 09/11/2018 DATE OF DISCHARGE: 09/22/2018 TRANSFER CARE NOTE: DATE OF TRANSFER CARE: 09/22/2018. CURRENT DIAGNOSES: 1. Septic shock secondary to peritonitis and sigmoid diverticulitis. 2. Status post laparotomy with sigmoid colectomy with colostomy. 3. Acute right posterior communicating arterial territorial cerebrovascular accident. 4. Acute hypoxic respiratory failure. 5. Status post cardiac arrest with return of spontaneous circulation. 6. Atrial fibrillation. 7. Acute kidney injury. 8. Chronic kidney disease, stage 3. 9. Diabetes mellitus, type 2, insulin requiring. 10. Diastolic dysfunction with preserved ejection fraction of 50% to 55%. CONSULTS: 1. Primary service attending, Dr. Camilo Henry. 2. [facility]. 3. Dr. Burgess and Dr. Tolliver with Pulmonary Critical Care Service. 4. Dr. Vigil with Neurology Service. PERTINENT LAB AND X-RAY FINDINGS: Potassium ranged between 3.1 to 4.3. Creatinine ranged between 0.85 to 1.66. Estimated GFR ranged between 29 to 64. Lactic acid level 2.6. Magnesium level ranged between 1.5 to 2.2. CBC showed a white blood cell count ranging between 5.4 to 26.8, hemoglobin ranged between 7.2 to 14.1. Pleural fluid culture dated 09/11/2018 showed no growth at 5 days. AFB pleural fluid culture pending, 09/12/2018. Bronchial washing, respiratory culture dated 09/17/2018 showed presumptive Ngozi albicans without normal respiratory akhil present. CT of the abdomen and pelvis dated 09/11/2018 showed perforated sigmoid diverticulitis with free intraperitoneal air and paracolonic gas and fluid collections. Large left pleural effusion noted. CT of the chest, abdomen, and pelvis dated 09/12/2018 showed sigmoid diverticulitis. Post left-sided thoracentesis with positive left pleural effusion. Abdominal radiographs dated 09/15/2018 showed unremarkable bowel gas pattern. Residual contrast in the colon. 2D transthoracic echocardiogram dated 09/20/2018 showed ejection fraction of 50% to 55%. Diastolic dysfunction. Moderate left atrial enlargement. HOSPITAL COURSE: The patient was initially admitted under the General Surgery Service, who presented with left lower quadrant abdominal pain. The patient underwent extensive evaluation including CT imaging of the abdomen and pelvis showing evidence of perforated diverticulitis. The patient was also noted with a large left pleural effusion, evaluated by Pulmonology Critical Care Service, undergoing thoracentesis. The patient was also evaluated for the abdominal abscess and perforation, undergoing a laparotomy with sigmoid colon resection and Abad pouch with colostomies. The patient was monitored in the critical care unit with multiple complications including postoperative cerebrovascular accident with residual left hemiparesis and ischemic CVA involving the right posterior communicating artery distribution. The patient also was subsequently extubated in the critical care unit; however, was reintubated after the acute CVA. The patient also had brief cardiac arrest requiring chest compressions with return of spontaneous circulation. The patient continued on broad-spectrum antibiotic therapy with Zosyn and additional micafungin. The patient exhibited worsening clinical response to aggressive and comprehensive medical and surgical therapy. Discussions were had with the family regarding ongoing care and the patient's family decided to pursue the goal of comfort rather than aggressive intervention. The patient was subsequently extubated after approval from family members on 09/22/2018. The patient received morphine sulfate and additional Ativan with family at the bedside. The patient continues to receive supportive management with anxiolytics and pain medication intravenously. CURRENT MEDICATIONS: 1. Coreg 25 mg daily. 2. Lasix 40 mg b.i.d. 3. Clonidine 0.1 mg t.i.d. 4. Lipitor 80 mg per tube at bedtime. 5. Glargine insulin 20 units subcutaneously b.i.d. 6. Solu-Medrol 40 mg IV push daily. 7. Micafungin 100 mg daily. 8. Zosyn 3.375 g IV every 6 hours. CONDITION AT THE TIME OF TRANSFER CARE: Guarded. Comfort measures instituted currently. DIET: N.p.o. CODE STATUS: Do not resuscitate. DISPOSITION: Comfort measures with terminal extubation, 09/22/2018. Job ID: [id number]
[2018-09-22] MEDS ORDERED: SODIUM CHLORIDE IV SCH (22:00)
[2018-09-22] MEDS ORDERED: SODIUM ACETATE IV SCH (22:00)
[2018-09-22] MEDS ORDERED: [UNRECOGNIZED DRUG - OTHER] IV SCH (22:00)
[2018-09-22] MEDS ORDERED: POTASSIUM ACETATE IV SCH (22:00)
[2018-09-23] MEDS ORDERED: Insulin Glargine 20 UNITS in Pre-Filled Syringe 1 EACH SC SCH (09:00)
--- NOTE | 2018-09-24 18:25 | PQF ---
NACHO CORREA GREGORY SUH DO [id number] [facility] [id number] CLINICAL DOCUMENTATION CLARIFICATION FORM: POST DISCHARGE Addendum to original discharge summary date: ____ Late entry note date: __ DATE: 09/24/18 ATTN: Please exercise your independent, professional judgment in responding to the clarification form. Clinical indicators are provided on the bottom of this form for your review Diagnosis: Sepsis Present on Admission (POA): [ ] Yes [ ] No [ x ] Unable to determine Coding guidelines require hospitals to identify whether a diagnosis was present on admission (POA) or not. To accurately assign the appropriate POA indicator, this information must be clearly documented within the medical record. CLINICAL INDICATORS - SIGNS / SYMPTOMS / LABS Documentation to support POA status Leukopenia Diverticulitis RISK FACTORS: Documentation to support POA status CVA Encephalopathy Acute respiratory failure TREATMENT: Documentation to support POA status Antiobiotics (This form is maintained as a part of the permanent medical record) 2014 [employer]. All Rights Reserved [email or web address] [phone] [email or web address]
== END 2018-09-22 16:50 | disposition expired | DRG 329 ==
LOC: ERS 11:47 → SURG A 13:46 → CCU 09-16 15:46
PROVIDERS: ADMIT Specialist; ATTEND Specialist
PROC: 0W9B3ZX Drainage of Left Pleural Cavity, Percutaneous Approach, Diagnostic (ICD-10-PCS; 2018-09-11)
PROC: 5A1955Z Respiratory Ventilation, Greater than 96 Consecutive Hours (ICD-10-PCS; 2018-09-11)
PROC: 0BH17EZ Insertion of Endotracheal Airway into Trachea, Via Natural or Artificial Opening (ICD-10-PCS; 2018-09-11)
PROC: 0DTN0ZZ Resection of Sigmoid Colon, Open Approach (ICD-10-PCS; principal; 2018-09-16)
PROC: 30233N1 Transfusion of Nonautologous Red Blood Cells into Peripheral Vein, Percutaneous Approach (ICD-10-PCS; 2018-09-16)
PROC: 0BDG8ZX Extraction of Left Upper Lung Lobe, Via Natural or Artificial Opening Endoscopic, Diagnostic (ICD-10-PCS; 2018-09-17)
PROC: 0BJ08ZZ Inspection of Tracheobronchial Tree, Via Natural or Artificial Opening Endoscopic (ICD-10-PCS; 2018-09-17)
DX: K57.20 Diverticulitis of large intestine with perforation and abscess without bleeding (principal); I63.9 Cerebral infarction, unspecified; G93.41 Metabolic encephalopathy; J96.01 Acute respiratory failure with hypoxia; R65.21 Severe sepsis with septic shock; A41.9 Sepsis, unspecified organism; K65.9 Peritonitis, unspecified; N17.9 Acute kidney failure, unspecified; J90 Pleural effusion, not elsewhere classified; I50.32 Chronic diastolic (congestive) heart failure; I13.0 Hypertensive heart and chronic kidney disease with heart failure and stage 1 through stage 4 chronic kidney disease, or unspecified chronic kidney disease; E87.2 Acidosis; J98.11 Atelectasis; G81.94 Hemiplegia, unspecified affecting left nondominant side; N18.3 Chronic kidney disease, stage 3 (moderate); E11.22 Type 2 diabetes mellitus with diabetic chronic kidney disease; Z85.528 Personal history of other malignant neoplasm of kidney; Z90.5 Acquired absence of kidney; E66.9 Obesity, unspecified; D69.6 Thrombocytopenia, unspecified; Z79.899 Other long term (current) drug therapy; I48.91 Unspecified atrial fibrillation
CPT/HCPCS: 32551; 36415; 36416; 36430; 70450; 71045; 71260; 74018; 74176; 74177; 80048; 80053; 82150; 82550; 82805; 82945; 83605; 83615; 83690; 83735; 83880; 83986; 84100; 84157; 84478; 84484; 85025; 85060; 85610; 85730; 86850; 86900; 86901; 87070; 87116; 87205; 87206; 88112; 88305; 88307; 88341; 88342; 89051; 93005; 93010; 93306; 94002; 94003; 94640; 96361; 96365; 96367; 96375; 96376; A4217; C9113; G8978-GP-CK; G8978-GP-CL; G8979-GP-CI; G8979-GP-CJ; G8987-GO-CM; G8988-GO-CK; J0131; J0171; J0360; J0670; J1642; J1650; J1815; J1885; J1940; J2001; J2060; J2248; J2250; J2270; J2370; J2405; J2543; J2704; J2765; J2920; J3010; J3475; J3480; J7050; J7070; J7620; P9016; P9045; P9047; S0020; S0028